=== PATIENT | female | born 1955 | race Hispanic/Latino ===

== ENCOUNTER 2018-10-14 00:39 | Emergency (ER) | payer MEDICARE, MEDICAID ==
[2018-10-14 02:30] LABS: #Basophils 0.1 thou/uL (0.0-0.2); #Eosinphils 0.1 thou/uL (0.0-0.7); #Lymphocytes 1.5 thou/uL (1.20-3.40); #Monocytes 0.4 thou/uL (0.11-0.59); #Neutrophils 3.6 thou/uL (1.40-6.50); %Basophils 1.3 % (0.0-1.0); %Eosinophils 1.5 % (0.0-10.0); %Lymphocytes 26.3 % (21.0-51.0); %Monocytes 7.7 % (0.0-10.0); %Neutrophils 63.2 % (42.0-75.0); Hemoglobin 11.3 g/dL (12.0-16.0); Mean Corpuscular HGB CONC 33.7 g/dL (32.0-36.0); Mean Corpuscular Hemoglobin 31.5 pg (27.0-31.0); Mean Corpuscular Volume 93.3 fL (78.0-98.0); Mean Platelet Volume 7.4 fL (7.4-10.4); Platelet Count 276 thou/uL (130-400); RBC Distribution Width 15.8 % (11.5-14.5); Red Blood Cell (RBC) Count 3.59 mill/uL (4.20-5.40); White Blood Cell (WBC) Count 5.6 thou/uL (4.8-10.8)
[2018-10-14 02:49] LABS: ALT (SGPT) 7 U/L (8-55); AST (SGOT) 13 U/L (5-34); Alkaline Phosphatase 92 U/L (40-150); Anion Gap 17 mmol/L (10-20); BUN (Urea Nitrogen) 22 mg/dL (9.8-20.1); Bilirubin, Total 0.4 mg/dL (0.2-1.2); Calc. Creatinine Clearance 0 mL/min (70-130); Calcium 9.6 mg/dL (7.8-10.44); Carbon Dioxide 31 mmol/L (23-31); Chloride 95 mmol/L (98-107); Estimated GFR-MDRD 8; Globulin 3.7 g/dL (2.4-3.5); Glucose 184 mg/dL (80-115); Potassium 4.2 mmol/L (3.5-5.1); Protein, Total 7.7 g/dL (6.0-8.3); Sodium 139 mmol/L (136-145)
--- NOTE | 2018-10-14 08:07 | RAD ---
TWO VIEWS CHEST: Date: 10-14-18 Comparison: 01-29-16 History: Chest pain with shortness of breath. FINDINGS: Two views of the chest show normal sized cardiomediastinal silhouette. There is no evidence of consol idation, mass, or pleural effusion. Degenerative changes are seen in the spine. IMPRESSION: No evidence of acute cardiopulmonary disease. POS: [facility]
== END 2018-10-14 05:25 | disposition home or self-care (01) ==
LOC: ERS 00:39
DX: R05 Cough (principal); R06.02 Shortness of breath; E11.9 Type 2 diabetes mellitus without complications; E03.9 Hypothyroidism, unspecified; I10 Essential (primary) hypertension; Z79.4 Long term (current) use of insulin; Z79.899 Other long term (current) drug therapy
CPT/HCPCS: 36415; 71046; 80053; 83880; 84484; 85025

== ENCOUNTER 2019-08-15 19:23 | Inpatient (IN) | payer MEDICARE, MEDICAID ==
[2019-08-15] MEDS ORDERED: Sodium Chloride For Inhalation 0.9% 3 ML NEB ONE (19:55)
[2019-08-15] MEDS ORDERED: Levalbuterol HCl 1.25 MG/0.5 ML NEB ONE (19:55)
[2019-08-15] MEDS ORDERED: Oseltamivir 75 MG CAP ONE (20:11)
[2019-08-15] MEDS ORDERED: Acetaminophen 500 MG TAB ONE (20:11)
[2019-08-15 20:14] LABS: #Basophils 0.2 thou/uL (0.0-0.2); #Eosinphils 0.1 thou/uL (0.0-0.7); #Lymphocytes 3.4 thou/uL (1.20-3.40); #Monocytes 0.9 thou/uL (0.11-0.59); #Neutrophils 10.5 thou/uL (1.40-6.50); %Basophils 1.4 % (0.0-1.0); %Eosinophils 0.5 % (0.0-10.0); %Lymphocytes 22.2 % (21.0-51.0); %Monocytes 6.1 % (0.0-10.0); %Neutrophils 69.8 % (42.0-75.0); Hemoglobin 12.6 g/dL (12.0-16.0); Mean Corpuscular HGB CONC 32.2 g/dL (32.0-36.0); Mean Corpuscular Hemoglobin 31.4 pg (27.0-31.0); Mean Corpuscular Volume 97.5 fL (78.0-98.0); Mean Platelet Volume 7.4 fL (7.4-10.4); Platelet Count 286 thou/uL (130-400); Red Blood Cell (RBC) Count 4.01 mill/uL (4.20-5.40); White Blood Cell (WBC) Count 15.1 thou/uL (4.8-10.8)
--- NOTE | 2019-08-15 20:14 | RAD ---
EXAM: Portable chest PROVIDED CLINICAL HISTORY: Cough COMPARISON: 10/14/2018 FINDINGS: Cardiac and mediastinal silhouette is within normal limits. No focal consolidation, pleural fluid or pneumothorax evident. IMPRESSION: No evidence for an acute cardiopulmonary process.
[2019-08-15 20:31] LABS: ALT (SGPT) 13 U/L (8-55); AST (SGOT) 12 U/L (5-34); Albumin 4.2 g/dL (3.4-4.8); Alkaline Phosphatase 79 U/L (40-110); Anion Gap 20 mmol/L (10-20); BUN (Urea Nitrogen) 26 mg/dL (9.8-20.1); Bilirubin, Total 0.4 mg/dL (0.2-1.2); CK (CPK) 31 U/L (29-168); Calc. Creatinine Clearance 0 mL/min (70-130); Calcium 9.9 mg/dL (7.8-10.44); Carbon Dioxide 27 mmol/L (23-31); Chloride 93 mmol/L (98-107); Estimated GFR-MDRD 6; Globulin 3.8 g/dL (2.4-3.5); Glucose 368 mg/dL (80-115); Potassium 4.1 mmol/L (3.5-5.1); Sodium 136 mmol/L (136-145)
[2019-08-15] MEDS ORDERED: cefTRIAXone\\ROCEPHIN 1 GM VIAL ONE (20:43)
[2019-08-15] MEDS ORDERED: Azithromycin 500 MG VIAL ONE (20:43)
[2019-08-15] MEDS ORDERED: Sodium Chloride 0.9% 100 ML ONE (20:44)
[2019-08-15 20:59] LABS: Bilirubin Negative (Negative); Blood, Urine Trace (Negative); Clarity Clear (Clear); Glucose, Urine (Dipstick) >=1000 mg/dL (Negative); Leukocyte Negative (Negative); Nitrite Negative (Negative); Protein, Urine (Dipstick) > or equal to 300 mg/dL (Neg-Trace); Urobilinogen 0.2 mg/dL (Less than 2)
[2019-08-15 21:03] LABS: Bacteria/HPF None Seen HPF (None Seen); RBC/HPF 0-3 HPF (0-3); Squamous Epithelial 0-3 HPF (0-3); WBC/HPF 0-3 HPF (0-3)
[2019-08-16] MEDS ORDERED: Dextrose 50% Abboject 50 ML SYRINGE SLOW IVP PRN (01:06)
[2019-08-16] MEDS ORDERED: Dextrose 5% in Water 1,000 ML IV PRN ×2 (01:06→01:10)
[2019-08-16] MEDS ORDERED: Ondansetron ODT 4 MG TAB SL PRN (01:09)
[2019-08-16] MEDS ORDERED: Ondansetron PF 4 MG/2 ML Vial IVP PRN (01:09)
[2019-08-16] MEDS ORDERED: Acetaminophen 325 MG TAB PO PRN (01:09)
[2019-08-16] MEDS ORDERED: HYDROcodone/Acetaminophen 5/325 mg Tablet PO PRN ×3 (01:09→17:17)
[2019-08-16] MEDS ORDERED: Dextrose 50% Abboject 50 ML SYRINGE IVP PRN (01:10)
[2019-08-16] MEDS ORDERED: Insulin Regular 300 UNITS/3 ML VIAL SC PRN (01:10)
[2019-08-16] MEDS ORDERED: Sodium Chloride For Inhalation 0.9% 3 ML NEB NEB PRN (01:19)
[2019-08-16 01:31] LABS: Lactic Acid 2.7 mmol/L (0.5-2.2)
[2019-08-16 01:33] VITALS: BMI 31.5
--- NOTE | 2019-08-16 01:34 | PDOC.EVN ---
Event Note - Event Note Event Note: [id number] HP
[2019-08-16] MEDS: Levalbuterol HCl 1.25 MG/0.5 ML NEB NEB SCH ×2 (01:39→07:29)
[2019-08-16] MEDS ORDERED: cefTRIAXone\\ROCEPHIN 1 GM in Sodium Chloride 0.9% 100 ML IVPB SCH (02:00)
[2019-08-16] MEDS ORDERED: Azithromycin 500 MG in Sodium Chloride 0.9% 250 ML 250 ML IVPB SCH (03:00)
[2019-08-16] MEDS: HumaLOG 300 UNITS/3 ML VIAL SC PRN ×3 (05:48→17:01)
[2019-08-16] MEDS ORDERED: Prevnar 13-Val Conj/PF 0.5 ML SYRINGE IM ONE (09:00)
[2019-08-16] MEDS ORDERED: Oseltamivir 75 MG CAP PO SCH (09:00)
[2019-08-16] MEDS ORDERED: Labetalol HCl 100 MG/20 ML VIAL SLOW IVP PRN (09:33)
[2019-08-16] MEDS ORDERED: Melatonin 3 MG TAB PO PRN (09:33)
[2019-08-16] MEDS: Benzonatate 100 MG CAP PO PRN ×2 (11:00→15:38)
--- NOTE | 2019-08-16 11:19 | PDOC.EVN ---
Event Note - Event Note Event Note: Seen and examined. Nasal discomfort an upper respiratory tract infection symptoms. On appropriate antibiotics. Flu negative, DC antiviral. Nephrology consult for continuation of hemodialysis on Saturday/Saturday/Saturday schedule. Restarted home medications as able. Family at bedside. All questions answered in detail, patient and family are happy with plan of care.
[2019-08-16] MEDS ORDERED: Carvedilol 6.25 MG TAB PO SCH (12:30)
[2019-08-16] MEDS: Acetaminophen 500 MG TAB PO PRN (17:37)
[2019-08-16] MEDS: Carvedilol 6.25 MG TAB PO SCH (20:51)
[2019-08-16] MEDS: cefTRIAXone\\ROCEPHIN 1 GM in Sodium Chloride 0.9% 100 ML IVPB SCH (20:52)
[2019-08-16] MEDS: Brimonidine Tartrate 0.2% Ophth Soln 5 ml Bottle EA EYE SCH (20:53)
[2019-08-16] MEDS: Timolol 0.5% Ophth Soln 5 ml Bottle EA EYE SCH (20:53)
[2019-08-16] MEDS: Fluticasone Propionate Nasal Spray 16 gm Bottle NASAL SCH (20:54)
[2019-08-16] MEDS: Azithromycin 500 MG in Sodium Chloride 0.9% 250 ML 250 ML IVPB SCH ×2 (21:00→21:48)
[2019-08-16] MEDS: Insulin Glargine 20 UNITS in Pre-Filled Syringe 1 EACH SC SCH (21:08)
[2019-08-17] MEDS: Levothyroxine Sodium 100 MCG TAB PO SCH (05:35)
[2019-08-17] MEDS: HumaLOG 300 UNITS/3 ML VIAL SC PRN ×2 (05:37→17:13)
--- NOTE | 2019-08-17 07:45 | HP ---
CHIEF COMPLAINT: Shortness of breath and flu-like symptoms. HISTORY OF PRESENT ILLNESS: Ms. Hoskins is a 64-year-old female with past medical historyof end-stage renal disease on hemodialysis, diabetes mellitus, hypertension, hypothyroidism, among others, presents to the emergency room with cough, myalgia, generalized weakness, and fever for 1 week. The patient was seen at the Urgent Care the day before and was prescribed Augmentin for possible strep throat. The patient's condition got worse. Workup in the emergency room including a chest x-ray was nondiagnostic. Rapid flu test is negative, but the patient was experiencing flu-like symptoms, so the ED physician gave the patient 1 dose of Tamiflu. Also, septic workup was done in the ED. The patient was started on IV antibiotics. The patient is being admitted to hospital for further management. PAST MEDICAL HISTORY: 1. End-stage renal disease, on hemodialysis. 2. Hypertension. 3. Diabetes mellitus. 4. Blindness. 5. Hypothyroidism. SOCIAL HISTORY: No history of smoking, alcohol drinking, or drug abuse. FAMILY HISTORY: Reviewed, noncontributory. ALLERGIES: NO KNOWN ALLERGIES. HOME MEDICATIONS: Please see home medication reconciliation form for updated medications. REVIEW OF SYSTEMS: Review of 14 systems negative except what is mentioned in history of present illness. PHYSICAL EXAMINATION: GENERAL: The patient is awake, alert, in moderate distress. VITAL SIGNS: Blood pressure 158/65, temperature 99.1, respiratory rate is 20, pulse is 82, pulse oximetry is 99% on room air. HEAD AND NECK: Normocephalic, atraumatic. Throat is erythematous. Neck is supple. CHEST: Coarse bilateral breath sounds. HEART: S1, S2. Regular. ABDOMEN: Soft, nontender. Bowel sounds present. NEURO: Awake, alert, oriented x3, the patient is blind. PSYCH: Unable to assess. EXTREMITIES: No clubbing, no cyanosis. LABORATORY DATA: Sodium is 136, potassium 4.1, BUN is 26, creatinine 6.5, glucose is elevated at 368. Lactic acid is 2.5. Repeat lactic acid is 2.4. Troponin 0.017. The urinalysis unremarkable except for protein and glucose. Chest x-ray is nondiagnostic, does not show any acute findings. ASSESSMENT: 1. Fever. 2. Leukocytosis. 3. Flu-like symptoms. 4. End-stage renal disease, on hemodialysis. 5. Diabetes mellitus with hyperglycemia. 6. Hypertension. 7. Blindness. PLAN: 1. Admit. 2. Septic workup including blood cultures. 3. The patient was started on IV antibiotics. 4. The patient was given 1 dose of Tamiflu in the ED. Her symptoms have been going on for 1 week for now. I do not see any benefit of continuing Tamiflu at this point, especially symptoms has been going on for a week and flu test is negative. 5. Consider nephrology consultation. The patient is due for hemodialysis on Saturday. 6. Reconcile home medications. 7. DVT prophylaxis as appropriate. 8. Expected length of stay at least 1 midnight if patient is stable. Job ID: [id number]
[2019-08-17] MEDS ORDERED: Insulin Glargine 25 UNITS in Pre-Filled Syringe 1 EACH SC SCH (10:45)
[2019-08-17] MEDS ORDERED: Heparin 10,000 UNITS/ 10 ML VIAL ONE (11:11)
[2019-08-17] MEDS: Acetaminophen 500 MG TAB PO PRN ×3 (11:17→20:52)
[2019-08-17] MEDS: Benzonatate 100 MG CAP PO PRN ×2 (11:18→22:12)
[2019-08-17] MEDS ORDERED: guaiFENesin/Codeine Phosphate 200 mg/20 mg 10 ml UD Cup PO PRN (11:30)
[2019-08-17] MEDS ORDERED: HumaLOG 300 UNITS/3 ML VIAL SC PRN (11:33)
[2019-08-17 12:14] LABS: Anion Gap 18 mmol/L (10-20); BUN (Urea Nitrogen) 13 mg/dL (9.8-20.1); Calc. Creatinine Clearance 20 mL/min (70-130); Calcium 9.7 mg/dL (7.8-10.44); Carbon Dioxide 26 mmol/L (23-31); Chloride 100 mmol/L (98-107); Estimated GFR-MDRD 12; Glucose 141 mg/dL (80-115); Potassium 4.5 mmol/L (3.5-5.1); Sodium 139 mmol/L (136-145)
[2019-08-17 12:36] LABS: #Basophils 0.1 thou/uL (0.0-0.2); #Eosinphils 0.3 thou/uL (0.0-0.7); #Lymphocytes 3.6 thou/uL (1.20-3.40); #Neutrophils 7.6 thou/uL (1.40-6.50); %Basophils 1.1 % (0.0-1.0); %Eosinophils 2.6 % (0.0-10.0); %Lymphocytes 28.7 % (21.0-51.0); %Monocytes 7.9 % (0.0-10.0); %Neutrophils 59.7 % (42.0-75.0); Mean Corpuscular HGB CONC 33.9 g/dL (32.0-36.0); Mean Corpuscular Hemoglobin 31.9 pg (27.0-31.0); Mean Corpuscular Volume 94.2 fL (78.0-98.0); Platelet Count 262 thou/uL (130-400); RBC Distribution Width 16.3 % (11.5-14.5); Red Blood Cell (RBC) Count 3.75 mill/uL (4.20-5.40); White Blood Cell (WBC) Count 12.6 thou/uL (4.8-10.8)
[2019-08-17] MEDS: Fluticasone Propionate Nasal Spray 16 gm Bottle NASAL SCH ×2 (13:12→20:54)
[2019-08-17] MEDS: Carvedilol 6.25 MG TAB PO SCH ×2 (13:12→20:51)
[2019-08-17] MEDS: Brimonidine Tartrate 0.2% Ophth Soln 5 ml Bottle EA EYE SCH ×2 (13:12→20:54)
[2019-08-17] MEDS: Insulin Glargine 20 UNITS in Pre-Filled Syringe 1 EACH SC SCH (13:14)
[2019-08-17] MEDS: Timolol 0.5% Ophth Soln 5 ml Bottle EA EYE SCH ×2 (13:14→20:54)
--- NOTE | 2019-08-17 14:52 | PDOC.HOSPP ---
- Subjective Subjective: Seen and examined. Clinically improving. Afebrile. Still with cough and upper respiratory tract infection symptoms. Adjusting medications for cough as needed. Finished dialysis this morning. Family at bedside, all questions answered in detail. Patient and family happy with plan of care. - Objective Vital Signs & Weight: Vital Signs (12 hours) Temp Pulse Resp BP BP Pulse Ox 08/17/19 13:14 177/73 H 08/17/19 13:12 177/73 H 08/17/19 11:30 97 08/17/19 11:14 98.3 F 86 18 124/67 97 08/17/19 04:19 98.3 F 79 20 173/86 H 97 Weight Weight 178 lb I&O: 08/16/19 08/17/19 08/18/19 06:59 06:59 06:59 Intake Total 400 1572 Balance 400 1572 Result Diagrams: 08/17/19 12:27 08/17/19 11:29 Additional Labs: Accuchecks 08/17/19 08/17/19 08/16/19 11:36 04:25 19:25 POC Glucose 137 H 280 H 217 H 08/16/19 16:24 POC Glucose 246 H Radiology Reviewed by me: Yes Hospitalist ROS - Review of Systems All other systems reviewed; all pertinent +/- noted in HPI/Subj - Medication Medications: Active Medications Generic Name Dose Route Start Last Admin Trade Name Freq PRN Reason Stop Dose Admin Acetaminophen 1,000 mg 08/16/19 17:16 08/17/19 13:10 Tylenol PO 1,000 mg Q6H PRN Administration Moderate Pain (4-6) Albuterol/Ipratropium 3 ml 08/16/19 09:33 08/16/19 15:49 Duoneb NEB 3 ml [id number] PRN Administration SOB &/or Wheezing Benzonatate 100 mg 08/16/19 09:33 08/17/19 11:18 Tessalon PO 100 mg Q4H PRN Administration Cough Brimonidine Tartrate 1 drop 08/16/19 21:00 08/17/19 13:12 Alphagan 0.2% Ophth Soln EA EYE Not Given BID ZOILA Carvedilol 12.5 mg 08/16/19 21:00 08/17/19 13:12 Coreg PO Not Given BID ZOILA Fluticasone Propionate 0 gm 08/16/19 21:00 08/17/19 13:12 Flonase Nasal [place] NASAL Not Given BID ZOILA Ceftriaxone Sodium 1 gm/ 100 mls @ 200 mls/hr 08/16/19 20:00 08/16/19 20:52 Sodium Chloride IVPB 100 mls 2000 ZOILA Administration Azithromycin 500 mg/ Sodium 250 mls @ 250 mls/hr 08/16/19 21:00 08/16/19 21: 48 Chloride IVPB 250 mls 2100 ZOILA Administration Levothyroxine Sodium 100 mcg 08/17/19 06:00 08/17/19 05:35 Synthroid PO 100 mcg 0600 ZOILA Administration Timolol Maleate 1 drop 08/16/19 21:00 08/17/19 13:14 Timoptic 0.5% Ophth Soln EA EYE Not Given BID ZOILA - Exam General Appearance: NAD Eye: PERRL, anicteric sclera ENT: normocephalic atraumatic, moist mucosa Neck: supple, symmetric, no lymphadenopathy Heart: no murmur, no gallops, no rubs Respiratory: CTAB, no rales, normal chest expansion, rhonchi, wheezes (improving ) Gastrointestinal: soft, non-tender, non-distended, no guarding, no rigidity Extremities - other findings: Left UE with fistula with palpable and audible thrill Skin: no rashes Neurological: cranial nerve grossly intact, normal sensation to touch, no focal deficits, vision deficit (blind at baseline) Musculoskeletal: generalized weakness Psychiatric: normal affect, A&O x 3 Hosp A/P (1) Bronchitis Code(s): J40 - BRONCHITIS, NOT SPECIFIED ACUTE OR CHRONIC Status: Acute (2) Upper respiratory infection Code(s): J06.9 - ACUTE UPPER RESPIRATORY INFECTION, UNSPECIFIED Status: Acute (3) Sepsis Code(s): A41.9 - SEPSIS, UNSPECIFIED ORGANISM Status: Acute (4) ESRD needing dialysis Code(s): N18.6 - END STAGE RENAL DISEASE Status: Acute (5) Fluid overload Code(s): E87.70 - FLUID OVERLOAD, UNSPECIFIED Status: Acute (6) Anemia of renal disease Code(s): D63.1 - ANEMIA IN CHRONIC KIDNEY DISEASE Status: Chronic (7) Chronic diastolic heart failure Code(s): I50.32 - CHRONIC DIASTOLIC (CONGESTIVE) HEART FAILURE Status: Chronic (8) DM type 2 (diabetes mellitus, type 2) Status: Chronic Qualifiers: Diabetes mellitus complication status: with kidney complications Diabetes mellitus complication detail: with chronic kidney disease Chronic kidney disease stage: stage 4 (severe) Qualified Code(s): E11.22 - Type 2 diabetes mellitus with diabetic chronic kidney disease (9) Glaucoma Code(s): H40.9 - UNSPECIFIED GLAUCOMA Status: Chronic (10) HTN (hypertension) Code(s): I10 - ESSENTIAL (PRIMARY) HYPERTENSION Status: Chronic (11) Hypothyroidism Code(s): E03.9 - HYPOTHYROIDISM, UNSPECIFIED Status: Chronic (12) Secondary hyperparathyroidism of renal origin Code(s): N25.81 - SECONDARY HYPERPARATHYROIDISM OF RENAL ORIGIN Status: Chronic (13) Dyspnea Code(s): R06.00 - DYSPNEA, UNSPECIFIED Status: Resolved (14) Metabolic acidosis Code(s): E87.2 - ACIDOSIS Status: Resolved - Plan Plan: medical unit nephrology consultation, recommendations patient responding to pulmonary specific antibiotics breathing treatments scheduled and as needed cough aid as needed blood pressure medications continued hemodialysis per nephrology Saturday schedule continue other home medications as able blood sugar control with long and short acting insulin patient is on Toujeo as an outpatient, non formulary. substituted for Lantus BID - increased from 20 units to 25 units today increase lighting so coverage from mild to moderate
[2019-08-17] MEDS: cefTRIAXone\\ROCEPHIN 1 GM in Sodium Chloride 0.9% 100 ML IVPB SCH (20:52)
[2019-08-17] MEDS: Azithromycin 500 MG in Sodium Chloride 0.9% 250 ML 250 ML IVPB SCH (20:57)
[2019-08-17] MEDS: Insulin Glargine 25 UNITS in Pre-Filled Syringe 1 EACH SC SCH (20:57)
[2019-08-18] MEDS ORDERED: Ondansetron ODT 4 MG TAB SL PRN (00:09)
[2019-08-18] MEDS: Levothyroxine Sodium 100 MCG TAB PO SCH (05:37)
[2019-08-18] MEDS: Timolol 0.5% Ophth Soln 5 ml Bottle EA EYE SCH ×2 (08:54→20:20)
[2019-08-18] MEDS: Brimonidine Tartrate 0.2% Ophth Soln 5 ml Bottle EA EYE SCH ×2 (08:54→20:20)
[2019-08-18] MEDS: Carvedilol 6.25 MG TAB PO SCH ×2 (08:56→20:19)
[2019-08-18] MEDS: Fluticasone Propionate Nasal Spray 16 gm Bottle NASAL SCH ×2 (08:56→20:20)
[2019-08-18] MEDS: Insulin Glargine 25 UNITS in Pre-Filled Syringe 1 EACH SC SCH ×2 (08:57→20:21)
[2019-08-18] MEDS: Benzonatate 100 MG CAP PO PRN ×2 (09:11→20:19)
[2019-08-18] MEDS: HumaLOG 300 UNITS/3 ML VIAL SC PRN (14:29)
--- NOTE | 2019-08-18 15:46 | PDOC.HOSPP ---
- Subjective Encounter Date: 08/18/19 Encounter Time: 11:45 Subjective: pt up in bed feels much better today. - Objective Vital Signs & Weight: Vital Signs (12 hours) Temp Pulse Resp BP BP Pulse Ox 08/18/19 08:56 162/76 H 08/18/19 08:54 74 162/76 H 08/18/19 08:40 98.7 F 76 16 162/76 H 98 08/18/19 08:30 97 08/18/19 07:41 98.3 F 74 16 149/75 H 97 08/18/19 04:00 97.9 F 73 18 153/77 H 96 Weight Weight 178 lb I&O: 08/17/19 08/18/19 08/19/19 06:59 06:59 06:59 Intake Total 1572 1030 Balance 1572 1030 Result Diagrams: 08/17/19 12:27 08/17/19 11:29 Additional Labs: Accuchecks 08/18/19 08/18/19 08/17/19 11:54 05:05 19:50 POC Glucose 174 H 206 H 293 H 08/17/19 16:16 POC Glucose 298 H Hospitalist ROS - Review of Systems Cardiovascular: denies: chest pain, palpitations, orthopnea, paroxysmal noc. dyspnea, edema, light headedness, other Gastrointestinal: denies: nausea, vomiting, abdominal pain, diarrhea, constipation, melena, hematochezia, other - Medication Medications: Active Medications Generic Name Dose Route Start Last Admin Trade Name Freq PRN Reason Stop Dose Admin Acetaminophen 1,000 mg 08/16/19 17:16 08/17/19 20:52 Tylenol PO 1,000 mg Q6H PRN Administration Moderate Pain (4-6) Albuterol/Ipratropium 3 ml 08/16/19 09:33 08/18/19 05:15 Duoneb NEB 3 ml [id number] PRN Administration SOB &/or Wheezing Benzonatate 100 mg 08/16/19 09:33 08/18/19 09:11 Tessalon PO 100 mg Q4H PRN Administration Cough Brimonidine Tartrate 1 drop 08/16/19 21:00 08/18/19 08:54 Alphagan 0.2% Ophth Soln EA EYE 1 drp BID ZOILA Administration Carvedilol 12.5 mg 08/16/19 21:00 08/18/19 08:56 Coreg PO 12.5 mg BID ZOILA Administration Fluticasone Propionate 0 gm 08/16/19 21:00 08/18/19 08:56 Flonase Nasal [place] NASAL 1 spr BID ZOILA Administration Guaifenesin/Codeine Phosphate 10 ml 08/17/19 11:30 08/17/19 20:53 Robitussin Ac PO 10 ml Q6H PRN Administration Cough Ceftriaxone Sodium 1 gm/ 100 mls @ 200 mls/hr 08/16/19 20:00 08/17/19 20:52 Sodium Chloride IVPB 100 mls 2000 ZOILA Administration Azithromycin 500 mg/ Sodium 250 mls @ 250 mls/hr 08/16/19 21:00 08/17/19 20: 57 Chloride IVPB 250 mls 2100 ZOILA Administration Insulin Glargine 25 units/ 0.25 mls @ 1 mls/hr 08/17/19 21:00 08/18/19 08:57 Miscellaneous Medication SC 0.25 mls BID ZOILA Administration Insulin Human Lispro 0 units 08/17/19 11:33 08/18/19 14:29 Humalog SC 2 unit .MODERATE SLIDING SC PRN Administration Moderate Correctional Scale Levothyroxine Sodium 100 mcg 08/17/19 06:00 08/18/19 05:37 Synthroid PO 100 mcg 0600 ZOILA Administration Ondansetron HCl 4 mg 08/18/19 00:09 08/18/19 00:27 Zofran Odt SL 4 mg Q6H PRN Administration Nausea/Vomiting Timolol Maleate 1 drop 08/16/19 21:00 08/18/19 08:54 Timoptic 0.5% Ophth Soln EA EYE 1 drp BID ZOILA Administration - Exam Neck: negative: supple, symmetric, no JVD, no thyromegaly, no lymphadenopathy, no carotid bruit, JVD Heart: negative: RRR, no murmur, no gallops, no rubs, normal peripheral pulses, irregular, diminshed peripheral pulses, murmur present, II/IV, III/IV Respiratory: negative: CTAB, no wheezes, no rales, no ronchi, normal chest expansion, no tachypnea, normal percussion, rales, rhonchi, tachypneic, wheezes Hosp A/P (1) Bronchitis Code(s): J40 - BRONCHITIS, NOT SPECIFIED ACUTE OR CHRONIC Status: Acute (2) Upper respiratory infection Code(s): J06.9 - ACUTE UPPER RESPIRATORY INFECTION, UNSPECIFIED Status: Acute (3) ESRD needing dialysis Code(s): N18.6 - END STAGE RENAL DISEASE Status: Acute (4) Anemia of renal disease Code(s): D63.1 - ANEMIA IN CHRONIC KIDNEY DISEASE Status: Chronic (5) Chronic diastolic heart failure Code(s): I50.32 - CHRONIC DIASTOLIC (CONGESTIVE) HEART FAILURE Status: Chronic (6) DM type 2 (diabetes mellitus, type 2) Status: Chronic Qualifiers: Diabetes mellitus complication status: with kidney complications Diabetes mellitus complication detail: with chronic kidney disease Chronic kidney disease stage: stage 4 (severe) - Plan pt up in bed feels well. will get RVP swab. will continue abx for now. will get an echo. pt states she feels better with nebs. will continue.
[2019-08-18] MEDS: Docusate 100 MG CAP PO PRN (17:05)
[2019-08-18] MEDS: cefTRIAXone\\ROCEPHIN 1 GM in Sodium Chloride 0.9% 100 ML IVPB SCH (20:19)
[2019-08-18] MEDS: Azithromycin 500 MG in Sodium Chloride 0.9% 250 ML 250 ML IVPB SCH (20:20)
[2019-08-19] MEDS: Levothyroxine Sodium 100 MCG TAB PO SCH (05:41)
[2019-08-19 07:56] LABS: Anion Gap 17 mmol/L (10-20); BUN (Urea Nitrogen) 36 mg/dL (9.8-20.1); Calc. Creatinine Clearance 10 mL/min (70-130); Calcium 9.2 mg/dL (7.8-10.44); Carbon Dioxide 25 mmol/L (23-31); Chloride 101 mmol/L (98-107); Estimated GFR-MDRD 5; Glucose 129 mg/dL (80-115); Potassium 4.8 mmol/L (3.5-5.1); Sodium 138 mmol/L (136-145)
[2019-08-19] MEDS: Brimonidine Tartrate 0.2% Ophth Soln 5 ml Bottle EA EYE SCH (09:53)
[2019-08-19] MEDS: Insulin Glargine 25 UNITS in Pre-Filled Syringe 1 EACH SC SCH (09:53)
[2019-08-19] MEDS: Timolol 0.5% Ophth Soln 5 ml Bottle EA EYE SCH (09:53)
[2019-08-19] MEDS: Docusate 100 MG CAP PO PRN (09:54)
[2019-08-19] MEDS: Fluticasone Propionate Nasal Spray 16 gm Bottle NASAL SCH (09:54)
[2019-08-19] MEDS: Carvedilol 6.25 MG TAB PO SCH (09:54)
[2019-08-19] MEDS: Benzonatate 100 MG CAP PO PRN (10:56)
[2019-08-19 18:09] VITALS: BP 113/66; TEMP 97.7
--- NOTE | 2019-08-20 12:40 | DIS ---
DATE OF ADMISSION: 08/17/2019 DATE OF DISCHARGE: 08/19/2019 DISCHARGE DIAGNOSES: 1. Upper respiratory tract infection, most likely bronchitis, viral related. Rhinovirus was positive. 2. Diabetes. 3. End-stage renal disease, on dialysis. 4. Anemia of chronic disease. HOSPITAL COURSE: The patient is a 64-year-old female, who initially presented to the hospital with generalized body aches and pains. At this time, her flu was negative. She also had shortness of breath. She did undergo a chest x-ray which was essentially normal. I did swab her further for a respiratory viral panel, which did indicate rhinovirus. However, her influenza A/B was negative. The patient was initially put on prophylactic antibiotics. She continued to improve. She did have some cough and phlegm, which I have encouraged her to drink a little bit more water and also has been giving her neb treatments. Her lungs appear clear. She will be discharged home today. She will follow up with her primary. HOME MEDICATIONS: 1. Tessalon Perles 100 mg b.i.d. p.r.n. 2. Doxycycline 100 mg b.i.d. for another 5 days. 3. DuoNeb 3 mL q.4 hours as needed. 4. Levothyroxine 100 mcg daily. 5. Coreg 12.5 b.i.d. 6. Brimonidine tartrate one drop b.i.d. 7. Timolol one drop each eye b.i.d. 8. Insulin 38 units daily. PHYSICAL EXAMINATION: VITAL SIGNS: Temperature of 98.8, pulse 71, respirations 16, 98% on room air, blood pressure 152/79. GENERAL: She is awake, alert, and oriented x3. Does not appear in any distress. CV: S1 and S2 present. No murmurs, rubs, or gallops. ABDOMEN: Soft and nontender. Bowel sounds are present x2. EXTREMITIES: No edema. DISCHARGE DISPOSITION: Again, she will be discharged home. FOLLOWUP: She will follow up with her primary and dialysis. Job ID: [id number]
--- NOTE | 2019-08-21 05:16 | PQF ---
WILDER THORNTON KARISHMA [id number] CLINICAL DOCUMENTATION CLARIFICATION FORM: POST DISCHARGE Addendum to original discharge summary date: ____ Late entry note date: __ DATE: 08/23/2019 ATTN: ROSEY HUNG Please exercise your independent, professional judgment in responding to the clarification form. Clinical indicators are provided on the bottom of this form for your review Please check appropriate box(es): [ ] Sepsis [ ] Severe sepsis [ ] Septic Shock [ ] Localized infection without sepsis [ ] Other diagnosis [ ] Unable to determine In addition, please specify: Present on Admission (POA): [ ] Yes [ ] No [ ] Unable to determine For continuity of documentation, please document condition throughout progress notes and discharge summary. Thank You. CLINICAL INDICATORS - SIGNS / SYMPTOMS / LABS Septic workup was done in ED - Documented in H&P on 08/16 by Joaquin Nuñez lactic acid -2.5 on 08/15- Documented in Laboratory fever , leukocytosis - Documented in H&P on 08/16 by Joaquin Nuñez septic workup including blood cultures - Documented in H&P on 08/16 by Joaquin Nuñez acute bronchitis , abnormal lactate - Documented in ED on 08/15 pg#3 RISK FACTORS Sepsis -Inpatient order Upper respiratory infection,most likely bronchitis, viral related - Documented in DS on 08/19 by ROSEY HUNG TREATMENTS: repeat lactic acid - Documented in H&P on 08/16 by Joaquin Nuñezstarted on IV abx (This form is maintained as a part of the permanent medical record) 2014 [employer]. All Rights Reserved [employer] Leod[employer]form Nicolas [email or web address] [not provided] MTDD
== END 2019-08-19 19:17 | disposition home or self-care (01) | DRG 202 ==
LOC: SCSER 19:23 → T4-B 23:25 → SCSER 08-16 00:15 → OBSVTOIN 08-17 10:20
PROVIDERS: ADMIT Internal Medicine; ATTEND Internal Medicine
PROC: 5A1D70Z Performance of Urinary Filtration, Intermittent, Less than 6 Hours Per Day (ICD-10-PCS; principal; 2019-08-17)
DX: J20.6 Acute bronchitis due to rhinovirus (principal); N18.6 End stage renal disease; I50.32 Chronic diastolic (congestive) heart failure; N25.81 Secondary hyperparathyroidism of renal origin; E87.2 Acidosis; I13.2 Hypertensive heart and chronic kidney disease with heart failure and with stage 5 chronic kidney disease, or end stage renal disease; E03.9 Hypothyroidism, unspecified; H54.7 Unspecified visual loss; E11.65 Type 2 diabetes mellitus with hyperglycemia; E11.22 Type 2 diabetes mellitus with diabetic chronic kidney disease; H40.9 Unspecified glaucoma; D63.1 Anemia in chronic kidney disease; J06.9 Acute upper respiratory infection, unspecified
CPT/HCPCS: 36415; 36416; 71045; 80048; 80053; 81003; 81015; 82550; 83605; 83880; 84484; 85025; 87040; 87086; 87633; 87798; 87804; 90471; 90670; 90935; 93005; 93306; 94640; 94760; 96365; 96367; G0009; G0257; J0456; J0696; J1644; J1815; J3490; J7050; J7612; J7620; Q0162

== ENCOUNTER 2019-12-15 15:00 | Outpatient (CLI) | payer MEDICARE, MEDICAID ==
--- NOTE | 2019-12-15 15:50 | RAD ---
CHEST 2 VIEWS: HISTORY: Shortness of breath. COMPARISON: 10/14/2018. FINDINGS: Minimal cardiomegaly. Mild stable increased markings bilaterally. No confluent pneumonia, overt dianelys ma, or pleural effusion. Slight blunting of the costophrenic angles. IMPRESSION: Mild increased bronchovascular markings bilaterally and slight blunting of the costophrenic angles, p ossibly small pleural effusions and vascular congestion. No new confluent lobar pneumonia or other a cute process. POS: [facility]
--- NOTE | 2019-12-15 16:16 | BD ---
Exam: DEXA Bone Density 12/15/19 HISTORY: Osteoporosis screening. COMPARISON: None. FINDINGS: Lumbar Spine: BMD (g/cm2) T-SCORE Z-SCORE L1 0.940 -0.5 1.0 L2 1.063 0.3 1.9 L3 1.049 -0.3 1.4 L4 1.076 0.1 1.9 L1-L4 1.033 -0.1 1.5 Left Femoral Neck: 0.666 -1.6 -0.4 Total Left Femur: 0.755 -1.5 -0.5 WHO classification: Osteopenia. IMPRESSION: Osteopenia with elevated fracture risk. POS: [facility]
--- NOTE | 2019-12-15 16:27 | MMO ---
Bilateral MAMMO Bilat Screen [facility]. CLINICAL HISTORY: Patient is 64 years old and is seen for screening. The patient has no family history of breast cancer. The patient has no personal history of cancer. VIEWS: The views performed were: bilateral craniocaudal with tomosynthesis and bilateral mediolateral oblique with tomosynthesis. FILMS COMPARED: The present examination has been compared to prior imaging studies performed at [facility] on 12/15/2010, 12/31/2012, 07/23/2014 and 12/04/2016. This study has been interpreted with the assistance of computer-aided detection. MAMMOGRAM FINDINGS: The breasts are heterogeneously dense, which could obscure a lesion on mammography. There are stable benign appearing calcifications seen in both breasts. There are no suspicious masses, suspicious calcifications, or new areas of architectural distortion. IMPRESSION: THERE IS NO MAMMOGRAPHIC EVIDENCE OF MALIGNANCY. A ROUTINE FOLLOW-UP MAMMOGRAM IN 1 YEAR IS RECOMMENDED. THE RESULTS OF THIS EXAM WERE SENT TO THE PATIENT. ACR BI-RADS Category 2 - Benign finding MAMMOGRAPHY NOTE: 1. A negative mammogram report should not delay a biopsy if a dominant of clinically suspicious mass is present. 2. Approximately 10% to 15% of breast cancers are not detected by mammography. 3. Adenosis and dense breasts may obscure an underlying neoplasm. Reported by: PEPE JEROME MD Electonically Signed: [id number]
== END 2019-12-15 15:01 | disposition home or self-care (01) ==
LOC: BICMAMMO 15:00
PROVIDERS: ATTEND Family Medicine
DX: Z12.31 Encounter for screening mammogram for malignant neoplasm of breast (principal); Z13.820 Encounter for screening for osteoporosis; R06.02 Shortness of breath; J98.4 Other disorders of lung; M85.852 Other specified disorders of bone density and structure, left thigh
CPT/HCPCS: 71046; 77063; 77067; 77080

== ENCOUNTER 2021-02-27 02:11 | Observation (INO) | payer MEDICARE, MEDICAID ==
[2021-02-27 02:55] LABS: #Basophils 0.1 thou/uL (0.0-0.2); #Eosinphils 0.2 thou/uL (0.0-0.7); #Lymphocytes 3.1 thou/uL (1.20-3.40); #Monocytes 0.7 thou/uL (0.11-0.59); #Neutrophils 3.6 thou/uL (1.40-6.50); %Basophils 1.5 % (0.0-1.0); %Lymphocytes 39.9 % (21.0-51.0); %Monocytes 9.6 % (0.0-10.0); Hemoglobin 11.9 g/dL (12.0-16.0); Mean Corpuscular HGB CONC 32.6 g/dL (32.0-36.0); Mean Corpuscular Hemoglobin 29.8 pg (27.0-31.0); Mean Corpuscular Volume 91.4 fL (78.0-98.0); Mean Platelet Volume 7.2 fL (7.4-10.4); Platelet Count 261 thou/uL (130-400); RBC Distribution Width 15.7 % (11.5-14.5); Red Blood Cell (RBC) Count 3.98 mill/uL (4.20-5.40); White Blood Cell (WBC) Count 7.7 thou/uL (4.8-10.8)
[2021-02-27] MEDS ORDERED: Morphine 4 MG/ML VIAL ONE (03:01)
[2021-02-27] MEDS ORDERED: Ondansetron PF 4 MG/2 ML Vial ONE (03:02)
[2021-02-27 03:16] LABS: ALT (SGPT) 12 U/L (8-55); AST (SGOT) 13 U/L (5-34); Albumin 3.7 g/dL (3.4-4.8); Alkaline Phosphatase 90 U/L (40-110); Anion Gap 18 mmol/L (10-20); BUN (Urea Nitrogen) 77 mg/dL (9.8-20.1); Bilirubin, Total 0.2 mg/dL (0.2-1.2); Calc. Creatinine Clearance 0 mL/min (70-130); Calcium 10.1 mg/dL (7.8-10.44); Carbon Dioxide 26 mmol/L (23-31); Chloride 96 mmol/L (98-107); Globulin 3.7 g/dL (2.4-3.5); Glucose 205 mg/dL (80-115); Lipase 86 U/L (8-78); Potassium 6.1 mmol/L (3.5-5.1); Protein, Total 7.4 g/dL (5.8-8.1); Sodium 134 mmol/L (136-145)
[2021-02-27] MEDS ORDERED: Dextrose 50% Abboject 50 ML SYRINGE ONE (03:30)
[2021-02-27] MEDS ORDERED: Sodium Bicarb 50 MEQ/50 ML Abboject 8.4% SYRINGE ONE (03:30)
[2021-02-27] MEDS ORDERED: Insulin Regular 300 UNITS/3 ML VIAL ONE (03:30)
[2021-02-27] MEDS ORDERED: Calcium Chloride 1 GM/10 ML Abboject SYRINGE ONE (03:30)
[2021-02-27 06:33] LABS: HBSAg Index 0.18 S/CO (0-0.99); Hep B Surf Ag Non-Reactive S/CO (NonReactive)
[2021-02-27] MEDS ORDERED: Dextrose 50% Abboject 50 ML SYRINGE SLOW IVP PRN (09:14)
[2021-02-27] MEDS ORDERED: HumaLOG 300 UNITS/3 ML VIAL SC PRN ×2 (09:14)
[2021-02-27] MEDS ORDERED: Dextrose 5% in Water 1,000 ML IV PRN (09:14)
[2021-02-27] MEDS ORDERED: Ondansetron ODT 4 MG TAB PO PRN (09:14)
[2021-02-27] MEDS: hydrALAZINE 20 MG/ML VIAL SLOW IVP PRN (10:57)
[2021-02-27 11:05] VITALS: BMI 32.0
[2021-02-27] MEDS: Heparin 5,000 UNITS/ML VIAL SC SCH (20:48)
[2021-02-27] MEDS: Acetaminophen 325 MG TAB PO PRN (20:48)
[2021-02-27 21:03] LABS: SARS-CoV-2 PCR by NAA Not Detected (NotDetected)
[2021-02-28] MEDS: hydrALAZINE 20 MG/ML VIAL SLOW IVP PRN (04:16)
[2021-02-28 05:02] LABS: Anion Gap 17 mmol/L (10-20); BUN (Urea Nitrogen) 44 mg/dL (9.8-20.1); Calc. Creatinine Clearance 11 mL/min (70-130); Calcium 9.5 mg/dL (7.8-10.44); Carbon Dioxide 25 mmol/L (23-31); Chloride 99 mmol/L (98-107); Glucose 124 mg/dL (80-115); Potassium 5.7 mmol/L (3.5-5.1); Sodium 135 mmol/L (136-145)
[2021-02-28 05:14] LABS: Hemoglobin 12.1 g/dL (12.0-16.0); Mean Corpuscular HGB CONC 31.6 g/dL (32.0-36.0); Mean Corpuscular Hemoglobin 28.9 pg (27.0-31.0); Mean Corpuscular Volume 91.4 fL (78.0-98.0); Mean Platelet Volume 8.8 fL (7.4-10.4); Platelet Count 158 thou/uL (130-400); RBC Distribution Width 15.5 % (11.5-14.5); Red Blood Cell (RBC) Count 4.21 mill/uL (4.20-5.40)
[2021-02-28 05:50] LABS: #Basophils 0.1 thou/uL (0.0-0.2); #Eosinphils 0.2 thou/uL (0.0-0.7); #Monocytes 0.8 thou/uL (0.11-0.59); %Basophils 0.8 % (0.0-1.0); %Eosinophils 1.8 % (0.0-10.0); %Lymphocytes 29.5 % (21.0-51.0); %Neutrophils 59.9 % (42.0-75.0); MDiff Complete? YES; Platelet Clumps SLIGHT; Platelet Morphology Comment Appears Adequate
[2021-02-28 07:29] LABS: Bacteria/HPF 4+ HPF (None Seen); RBC/HPF Greater than 50 HPF (0-3); Squamous Epithelial 21-50 HPF (0-3); WBC/HPF Greater than 50 HPF (0-3)
[2021-02-28 07:32] LABS: Bilirubin Negative (Negative); Blood, Urine 2+ (Negative); Clarity Extra Turbid (Clear); Glucose, Urine (Dipstick) 150 mg/dL (Negative); Ketone, Urine Negative (Negative); Leukocyte 500 Leu/uL (Negative); Nitrite 1+ (Negative); Protein, Urine (Dipstick) 300 mg/dL (Neg-Trace); Specific Gravity, Urine 1.011 (1.002-1.036); Urobilinogen Normal mg/dL (Less than 2)
[2021-02-28] MEDS: Heparin 5,000 UNITS/ML VIAL SC SCH (07:59)
[2021-02-28] MEDS: Acetaminophen 325 MG TAB PO PRN (07:59)
[2021-02-28] MEDS ORDERED: Lantus 1000 UNITS/10 ML VIAL SC SCH (09:00)
[2021-02-28] MEDS ORDERED: cefTRIAXone\\ROCEPHIN 1 GM in Sodium Chloride 0.9% 100 ML IVPB SCH (09:00)
[2021-02-28] MEDS ORDERED: Brimonidine Tartrate 0.2% Ophth Soln 5 ml Bottle EA EYE SCH (09:00)
[2021-02-28] MEDS ORDERED: Famotidine 20 MG TAB PO SCH (09:00)
[2021-02-28] MEDS ORDERED: Carvedilol 25 MG TAB PO SCH (09:00)
[2021-02-28] MEDS ORDERED: Timolol 0.5% Ophth Soln 5 ml Bottle EA EYE SCH (09:00)
[2021-02-28] MEDS ORDERED: Levothyroxine Sodium 100 MCG TAB PO SCH (09:00)
[2021-02-28 16:13] VITALS: BP 127/49; TEMP 97.9
== END 2021-02-28 18:32 | disposition home or self-care (01) ==
LOC: ERS 02:11 → ERHOLD 04:14 → 2NO 04:31
PROVIDERS: ADMIT Student in an Organized Health Care Education/Training Program; ATTEND Internal Medicine
DX: N39.0 Urinary tract infection, site not specified (principal); E87.5 Hyperkalemia; I12.0 Hypertensive chronic kidney disease with stage 5 chronic kidney disease or end stage renal disease; E11.22 Type 2 diabetes mellitus with diabetic chronic kidney disease; N18.6 End stage renal disease; E03.9 Hypothyroidism, unspecified; H54.7 Unspecified visual loss; Z79.4 Long term (current) use of insulin; Z79.899 Other long term (current) drug therapy; Z99.2 Dependence on renal dialysis; Z20.822 Contact with and (suspected) exposure to COVID-19
CPT/HCPCS: 74018; 80048; 80053; 81001; 82962 ×2; 83690; 85025 ×2; 87077; 87086; 87186; 87340; 93005; 96372; 96375; 96376; G0378 ×2; U0003; U0005; 36416; 87635; J0360; J0696; J1644; J1815; J2270; J2405; J3490

== ENCOUNTER 2021-07-05 22:43 | Observation (INO) | payer MEDICARE, MEDICAID ==
[2021-07-05] MEDS ORDERED: Nitroglycerin 0.4 MG TAB 1 EACH ONE (23:04)
[2021-07-05] MEDS ORDERED: Nitroglycerin 2% Ointment 1 INCH/1 GM Packet ONE (23:07)
[2021-07-05 23:23] LABS: #Basophils 0.1 thou/uL (0.0-0.2); #Eosinphils 0.1 thou/uL (0.0-0.7); #Lymphocytes 1.8 thou/uL (1.20-3.40); #Neutrophils 10.9 thou/uL (1.40-6.50); %Basophils 0.4 % (0.0-1.0); %Eosinophils 0.9 % (0.0-10.0); %Lymphocytes 12.8 % (21.0-51.0); %Monocytes 7.1 % (0.0-10.0); %Neutrophils 78.8 % (42.0-75.0); Hemoglobin 13.3 g/dL (12.0-16.0); Mean Corpuscular HGB CONC 32.1 g/dL (32.0-36.0); Mean Corpuscular Hemoglobin 30.9 pg (27.0-31.0); Mean Corpuscular Volume 96.3 fL (78.0-98.0); Mean Platelet Volume 8.1 fL (7.4-10.4); Platelet Count 208 thou/uL (130-400); RBC Distribution Width 15.6 % (11.5-14.5); Red Blood Cell (RBC) Count 4.29 mill/uL (4.20-5.40); White Blood Cell (WBC) Count 13.9 thou/uL (4.8-10.8)
[2021-07-05] MEDS ORDERED: Aspirin Chewable 81 MG TAB ONE (23:29)
[2021-07-05] MEDS ORDERED: Acetaminophen 500 MG TAB ONE (23:30)
[2021-07-05 23:41] LABS: ALT (SGPT) 13 U/L (8-55); AST (SGOT) 18 U/L (5-34); Albumin 4.4 g/dL (3.4-4.8); Alkaline Phosphatase 78 U/L (40-110); Anion Gap 19 mmol/L (10-20); BUN (Urea Nitrogen) 20 mg/dL (9.8-20.1); Bilirubin, Total 0.3 mg/dL (0.2-1.2); Calc. Creatinine Clearance 0 mL/min (70-130); Calcium 10.7 mg/dL (7.8-10.44); Carbon Dioxide 25 mmol/L (23-31); Chloride 96 mmol/L (98-107); Globulin 4.8 g/dL (2.4-3.5); Glucose 240 mg/dL (80-115); Magnesium 2.2 mg/dL (1.6-2.6); Potassium 4.7 mmol/L (3.5-5.1); Protein, Total 9.2 g/dL (5.8-8.1); Sodium 135 mmol/L (136-145)
[2021-07-06 00:24] LABS: SARS-CoV-2 NAA Rapid Test Not Detected (NotDetected)
[2021-07-06] MEDS ORDERED: Prevnar 13-Val Conj/PF 0.5 ML SYRINGE IM ONE (04:00)
[2021-07-06] MEDS ORDERED: Ondansetron PF 4 MG/2 ML Vial IVP PRN ×2 (06:46→11:39)
[2021-07-06] MEDS ORDERED: Acetaminophen 325 MG TAB PO PRN (06:49)
[2021-07-06] MEDS ORDERED: Ondansetron ODT 4 MG TAB PO PRN ×2 (06:49→11:39)
[2021-07-06 06:51] LABS: CKMB 0.8 ng/mL (0-6.6)
[2021-07-06] MEDS ORDERED: Labetalol HCl 100 MG/20 ML VIAL SLOW IVP PRN (11:39)
[2021-07-06] MEDS ORDERED: hydrALAZINE 20 MG/ML VIAL SLOW IVP PRN (11:39)
[2021-07-06] MEDS ORDERED: Acetaminophen 500 MG TAB PO PRN (11:39)
[2021-07-06] MEDS ORDERED: Carvedilol 25 MG TAB PO SCH ×2 (11:45→21:00)
[2021-07-06 12:04] LABS: #Basophils 0.1 thou/uL (0.0-0.2); #Eosinphils 0.1 thou/uL (0.0-0.7); #Lymphocytes 1.8 thou/uL (1.20-3.40); #Monocytes 1.1 thou/uL (0.11-0.59); #Neutrophils 7.2 thou/uL (1.40-6.50); %Basophils 0.8 % (0.0-1.0); %Lymphocytes 17.1 % (21.0-51.0); %Monocytes 11.1 % (0.0-10.0); %Neutrophils 70.1 % (42.0-75.0); Hemoglobin 12.8 g/dL (12.0-16.0); Mean Corpuscular HGB CONC 32.5 g/dL (32.0-36.0); Mean Corpuscular Hemoglobin 30.9 pg (27.0-31.0); Mean Corpuscular Volume 94.9 fL (78.0-98.0); Mean Platelet Volume 8.2 fL (7.4-10.4); Platelet Count 200 thou/uL (130-400); RBC Distribution Width 15.5 % (11.5-14.5); Red Blood Cell (RBC) Count 4.15 mill/uL (4.20-5.40); White Blood Cell (WBC) Count 10.3 thou/uL (4.8-10.8)
[2021-07-06 12:22] VITALS: TEMP 99.1
[2021-07-06 12:22] LABS: Anion Gap 22 mmol/L (10-20); BUN (Urea Nitrogen) 27 mg/dL (9.8-20.1); Calc. Creatinine Clearance 12 mL/min (70-130); Carbon Dioxide 23 mmol/L (23-31); Chloride 98 mmol/L (98-107); Glucose 174 mg/dL (80-115); Potassium 5.1 mmol/L (3.5-5.1); Sodium 138 mmol/L (136-145)
[2021-07-06 12:28] LABS: Troponin I 0.016 ng/mL (< 0.028)
[2021-07-06 14:13] VITALS: BP 160/68
[2021-07-06] MEDS ORDERED: Timolol 0.5% Ophth Soln 5 ml Bottle EA EYE SCH (21:00)
[2021-07-06] MEDS ORDERED: Brimonidine Tartrate 0.2% Ophth Soln 5 ml Bottle EA EYE SCH (21:00)
[2021-07-07] MEDS ORDERED: Levothyroxine Sodium 100 MCG TAB PO SCH (06:00)
[2021-07-07] MEDS ORDERED: Cholecalciferol 1,000 UNITS (25 MCG) TAB PO SCH (09:00)
[2021-07-07] MEDS ORDERED: Lantus 1000 UNITS/10 ML VIAL SC SCH (09:00)
== END 2021-07-06 14:33 | disposition home or self-care (01) ==
LOC: ERS 22:43 → ERHOLD 07-06 01:04 → 2SW 07-06 06:32
PROVIDERS: ADMIT Student in an Organized Health Care Education/Training Program; ATTEND Hospitalist
DX: R06.02 Shortness of breath (principal); I16.1 Hypertensive emergency; I13.11 Hypertensive heart and chronic kidney disease without heart failure, with stage 5 chronic kidney disease, or end stage renal disease; E11.22 Type 2 diabetes mellitus with diabetic chronic kidney disease; N18.6 End stage renal disease; E03.9 Hypothyroidism, unspecified; I25.10 Atherosclerotic heart disease of native coronary artery without angina pectoris; H54.7 Unspecified visual loss; Z79.4 Long term (current) use of insulin; Z79.899 Other long term (current) drug therapy; Z99.2 Dependence on renal dialysis; Z20.822 Contact with and (suspected) exposure to COVID-19
CPT/HCPCS: 71045; 80048; 82553; 83735; 83880; 84484 ×3; 85025; 93005; U0002; 36415; 80053; 84443; G0378

== ENCOUNTER 2022-09-17 20:25 | Inpatient (IN) | payer MEDICARE, MEDICAID ==
[2022-09-17 22:18] LABS: #Basophils 0.1 thou/uL (0.0-0.2); #Lymphocytes 1.3 thou/uL (1.20-3.40); #Neutrophils 10.9 thou/uL (1.40-6.50); %Basophils 0.5 % (0.0-1.0); %Eosinophils 0.3 % (0.0-10.0); %Lymphocytes 9.5 % (21.0-51.0); %Monocytes 7.7 % (0.0-10.0); Hemoglobin 10.1 g/dL (12.0-16.0); Mean Corpuscular HGB CONC 30.6 g/dL (32.0-36.0); Mean Corpuscular Hemoglobin 30.2 pg (27.0-31.0); Mean Corpuscular Volume 98.8 fl (78.0-98.0); Mean Platelet Volume 7.3 fL (7.4-10.4); Platelet Count 407 10x3/uL (130-400); RBC Distribution Width 18.1 % (11.5-14.5); Red Blood Cell (RBC) Count 3.34 mill/uL (4.20-5.40); White Blood Cell (WBC) Count 13.3 10x3/uL (4.8-10.8)
[2022-09-17 22:41] LABS: ALT (SGPT) 8 U/L (8-55); AST (SGOT) 15 U/L (5-34); Albumin 3.9 g/dL (3.4-4.8); Alkaline Phosphatase 105 U/L (40-110); Anion Gap 14 mmol/L (10-20); BUN (Urea Nitrogen) 12 mg/dL (9.8-20.1); Bilirubin, Total 0.5 mg/dL (0.2-1.2); Calc. Creatinine Clearance 0 mL/min (70-130); Carbon Dioxide 30 mmol/L (23-31); Chloride 95 mmol/L (98-107); Estimated GFR 11; Globulin 4.4 g/dL (2.4-3.5); Glucose 192 mg/dL (80-115); Potassium 4.5 mmol/L (3.5-5.1); Protein, Total 8.3 g/dL (5.8-8.1); Sodium 134 mmol/L (136-145)
[2022-09-17] MEDS ORDERED: Vancomycin 1 GM/200 ML (FROZEN) BAG ONE (23:59)
[2022-09-17] MEDS ORDERED: Cefepime 2 GM VIAL ONE (23:59)
[2022-09-18] MEDS ORDERED: Ondansetron PF 4 MG/2 ML Vial IVP PRN (01:30)
[2022-09-18] MEDS ORDERED: Ondansetron ODT 4 MG TAB SL PRN (01:30)
[2022-09-18] MEDS ORDERED: Acetaminophen 325 MG TAB PO PRN (01:48)
[2022-09-18] MEDS ORDERED: Acetaminophen 650 MG Suppository PR PRN (01:48)
[2022-09-18] MEDS ORDERED: Dextrose 5% in Water 1,000 ML IV PRN (02:57)
[2022-09-18] MEDS ORDERED: Dextrose 50% Abboject 50 ML SYRINGE SLOW IVP PRN (02:57)
[2022-09-18] MEDS: Levothyroxine Sodium 100 MCG TAB PO SCH (04:49)
[2022-09-18] MEDS: HumaLOG 300 UNITS/3 ML VIAL SC PRN (05:32)
[2022-09-18 06:00] LABS: SARS-CoV-2 NAA Rapid Test Not Detected (NotDetected)
[2022-09-18 06:49] LABS: #Basophils 0.1 thou/uL (0.0-0.2); #Eosinphils 0.1 thou/uL (0.0-0.7); #Lymphocytes 1.6 thou/uL (1.20-3.40); #Monocytes 1.2 thou/uL (0.11-0.59); %Basophils 0.6 % (0.0-1.0); %Eosinophils 0.6 % (0.0-10.0); %Lymphocytes 13.4 % (21.0-51.0); %Monocytes 9.9 % (0.0-10.0); %Neutrophils 75.5 % (42.0-75.0); Hemoglobin 10.2 g/dL (12.0-16.0); Mean Corpuscular HGB CONC 31.7 g/dL (32.0-36.0); Mean Corpuscular Hemoglobin 31.6 pg (27.0-31.0); Mean Corpuscular Volume 99.7 fl (78.0-98.0); Mean Platelet Volume 7.3 fL (7.4-10.4); Platelet Count 376 10x3/uL (130-400); RBC Distribution Width 17.7 % (11.5-14.5); Red Blood Cell (RBC) Count 3.23 mill/uL (4.20-5.40); White Blood Cell (WBC) Count 11.9 10x3/uL (4.8-10.8)
[2022-09-18] MEDS: Carvedilol 25 MG TAB PO SCH ×2 (09:08→22:05)
[2022-09-18] MEDS: Cinacalcet HCl 30 MG TAB PO SCH (09:09)
[2022-09-18] MEDS: Sevelamer Carbonate 800 MG TAB PO SCH (09:09)
[2022-09-18] MEDS: Timolol 0.5% Ophth Soln 5 ml Bottle EA EYE SCH ×2 (09:09→22:06)
[2022-09-18] MEDS: Brimonidine Tartrate 0.2% Ophth Soln 5 ml Bottle EA EYE SCH ×2 (09:09→22:06)
[2022-09-18] MEDS: Insulin Glargine 30 UNITS/0.3 ML VIAL SC SCH (09:09)
[2022-09-18] MEDS ORDERED: fentaNYL PF 100 MCG/2 ML SYRINGE ONE (12:00)
[2022-09-18] MEDS ORDERED: PROPOFOL 200 MG/20 ML VIAL ONE (13:03)
[2022-09-18] MEDS ORDERED: ePHEDrine 50 MG/ML VIAL ONE (13:03)
[2022-09-18] MEDS ORDERED: Ondansetron PF 4 MG/2 ML Vial ONE (13:03)
[2022-09-18] MEDS ORDERED: GLYCOPYRROLATE/PF 0.2 MG/ML VIAL ONE (13:03)
[2022-09-18] MEDS ORDERED: Metoclopramide HCl 10 MG/2 ML VIAL ONE (13:03)
[2022-09-18] MEDS ORDERED: Phenylephrine 10 MG/ML VIAL ONE (13:03)
[2022-09-18] MEDS ORDERED: traMADol HCl 50 MG TAB PO PRN (13:41)
[2022-09-18] MEDS ORDERED: Acetaminophen 500 MG TAB PO SCH (13:45)
[2022-09-18] MEDS ORDERED: Vancomycin Dose by Levels Sliding Scale (Wt 71-99) FS SCH (14:00)
[2022-09-18] MEDS ORDERED: Vancomycin HCl 500 MG in Sodium Chloride 0.9% 100 ML IVPB SCH (14:15)
[2022-09-18] MEDS ORDERED: Vancomycin Diaylsis Sliding Scale (Wt 71-99) FS SCH (14:15)
[2022-09-18] MEDS ORDERED: VANCOMYCIN 1.25 GM/250 ML BAG 1.25 GM in Premix Bag 1 BAG IVPB SCH (21:00)
[2022-09-18] MEDS: Gabapentin 300 MG CAP PO SCH (22:05)
[2022-09-18] MEDS: Cefepime 1 GM in Sodium Chloride 0.9% 100 ML IVPB SCH (22:06)
[2022-09-19] MEDS: Levothyroxine Sodium 100 MCG TAB PO SCH (05:38)
[2022-09-19 07:49] LABS: Vancomycin, Random 28.1 ug/mL (See Comment)
[2022-09-19] MEDS: Timolol 0.5% Ophth Soln 5 ml Bottle EA EYE SCH ×2 (08:19→21:42)
[2022-09-19] MEDS: Brimonidine Tartrate 0.2% Ophth Soln 5 ml Bottle EA EYE SCH ×2 (08:20→21:43)
[2022-09-19] MEDS: Carvedilol 25 MG TAB PO SCH ×2 (08:20→21:42)
[2022-09-19] MEDS: Sevelamer Carbonate 800 MG TAB PO SCH (08:22)
[2022-09-19] MEDS: Cinacalcet HCl 30 MG TAB PO SCH (08:22)
[2022-09-19] MEDS: Insulin Glargine 30 UNITS/0.3 ML VIAL SC SCH (08:24)
[2022-09-19] MEDS: Gabapentin 300 MG CAP PO SCH ×2 (08:25→21:42)
[2022-09-19 09:37] LABS: HBSAg Index 0.33 S/CO (0-0.99); Hep B Core Total Ab Non-Reactive (NonReactive); Hep B Core Total Index 0.13 S/CO (0-0.79); Hep B Surf Ag Non-Reactive S/CO (NonReactive); Hep C IgG Ab Non-Reactive (NonReactive); Hep C Index 0.18 S/CO (0-0.79)
[2022-09-19 10:29] LABS: HBSAB Concentration 87.11 mIU/mL; Hep B Surf AB Reactive (NonReactive)
[2022-09-19] MEDS: HumaLOG 300 UNITS/3 ML VIAL SC PRN ×2 (12:25→18:40)
[2022-09-19] MEDS: Guaifenesin DM 100-10/5 ML UDCUP PO PRN ×2 (13:11→21:53)
[2022-09-19] MEDS ORDERED: Heparin 10,000 UNITS/ 10 ML VIAL ONE (14:39)
[2022-09-19] MEDS: Cefepime 1 GM in Sodium Chloride 0.9% 100 ML IVPB SCH (21:41)
[2022-09-20] MEDS: HumaLOG 300 UNITS/3 ML VIAL SC PRN ×3 (01:00→17:50)
[2022-09-20] MEDS: Levothyroxine Sodium 100 MCG TAB PO SCH (05:22)
[2022-09-20 06:09] LABS: #Basophils 0.1 thou/uL (0.0-0.2); #Eosinphils 0.3 thou/uL (0.0-0.7); #Lymphocytes 1.6 thou/uL (1.20-3.40); #Monocytes 0.7 thou/uL (0.11-0.59); #Neutrophils 4.7 thou/uL (1.40-6.50); %Eosinophils 3.7 % (0.0-10.0); %Lymphocytes 21.4 % (21.0-51.0); %Monocytes 9.4 % (0.0-10.0); %Neutrophils 64.5 % (42.0-75.0); Hemoglobin 9.5 g/dL (12.0-16.0); Mean Platelet Volume 7.7 fL (7.4-10.4); Platelet Count 403 10x3/uL (130-400); Red Blood Cell (RBC) Count 3.08 mill/uL (4.20-5.40); White Blood Cell (WBC) Count 7.3 10x3/uL (4.8-10.8)
[2022-09-20 06:26] LABS: Anion Gap 13 mmol/L (10-20); BUN (Urea Nitrogen) 23 mg/dL (9.8-20.1); Calc. Creatinine Clearance 15 mL/min (70-130); Calcium 9.1 mg/dL (7.8-10.44); Carbon Dioxide 27 mmol/L (23-31); Chloride 97 mmol/L (98-107); Estimated GFR 9; Glucose 180 mg/dL (80-115); Potassium 4.4 mmol/L (3.5-5.1); Sodium 133 mmol/L (136-145)
[2022-09-20] MEDS: Apixaban 2.5 MG TAB PO SCH ×2 (08:25→20:05)
[2022-09-20] MEDS: Carvedilol 25 MG TAB PO SCH ×2 (08:31→20:05)
[2022-09-20] MEDS: Gabapentin 300 MG CAP PO SCH ×2 (08:31→20:05)
[2022-09-20] MEDS: Timolol 0.5% Ophth Soln 5 ml Bottle EA EYE SCH ×2 (08:32→20:05)
[2022-09-20] MEDS: Insulin Glargine 30 UNITS/0.3 ML VIAL SC SCH (08:32)
[2022-09-20] MEDS: Brimonidine Tartrate 0.2% Ophth Soln 5 ml Bottle EA EYE SCH ×2 (08:33→20:08)
[2022-09-20] MEDS: Cinacalcet HCl 30 MG TAB PO SCH (08:39)
[2022-09-20] MEDS: Sevelamer Carbonate 800 MG TAB PO SCH (08:39)
[2022-09-20] MEDS: Guaifenesin DM 100-10/5 ML UDCUP PO PRN (08:46)
[2022-09-20] MEDS: Cefepime 1 GM in Sodium Chloride 0.9% 100 ML IVPB SCH (20:08)
[2022-09-21] MEDS: HumaLOG 300 UNITS/3 ML VIAL SC PRN ×2 (00:35→05:51)
[2022-09-21] MEDS: Levothyroxine Sodium 100 MCG TAB PO SCH (05:51)
[2022-09-21 08:50] LABS: #Basophils 0.1 thou/uL (0.0-0.2); #Eosinphils 0.4 thou/uL (0.0-0.7); #Monocytes 0.7 thou/uL (0.11-0.59); #Neutrophils 3.7 thou/uL (1.40-6.50); %Basophils 1.4 % (0.0-1.0); %Eosinophils 5.5 % (0.0-10.0); %Lymphocytes 29.6 % (21.0-51.0); %Monocytes 9.5 % (0.0-10.0); %Neutrophils 54.1 % (42.0-75.0); Hemoglobin 10.6 g/dL (12.0-16.0); Mean Corpuscular HGB CONC 30.6 g/dL (32.0-36.0); Mean Corpuscular Hemoglobin 31.6 pg (27.0-31.0); Mean Platelet Volume 7.8 fL (7.4-10.4); Platelet Count 396 10x3/uL (130-400); RBC Distribution Width 18.2 % (11.5-14.5); Red Blood Cell (RBC) Count 3.34 mill/uL (4.20-5.40); White Blood Cell (WBC) Count 6.9 10x3/uL (4.8-10.8)
[2022-09-21] MEDS: Sevelamer Carbonate 800 MG TAB PO SCH (09:05)
[2022-09-21] MEDS: Apixaban 2.5 MG TAB PO SCH (09:05)
[2022-09-21] MEDS: Cinacalcet HCl 30 MG TAB PO SCH (09:05)
[2022-09-21] MEDS: Gabapentin 300 MG CAP PO SCH ×2 (09:05→20:49)
[2022-09-21] MEDS: Insulin Glargine 30 UNITS/0.3 ML VIAL SC SCH (09:06)
[2022-09-21] MEDS: Carvedilol 25 MG TAB PO SCH ×2 (09:06→20:49)
[2022-09-21] MEDS: Brimonidine Tartrate 0.2% Ophth Soln 5 ml Bottle EA EYE SCH ×2 (09:07→20:50)
[2022-09-21] MEDS: Timolol 0.5% Ophth Soln 5 ml Bottle EA EYE SCH ×2 (09:07→20:50)
[2022-09-21 09:55] LABS: Vancomycin, Random 18.8 ug/mL (See Comment)
[2022-09-21] MEDS ORDERED: Heparin 10,000 UNITS/ 10 ML VIAL ONE (10:44)
[2022-09-21 11:03] LABS: Anion Gap 20 mmol/L (10-20); BUN (Urea Nitrogen) 40 mg/dL (9.8-20.1); Calc. Creatinine Clearance 11 mL/min (70-130); Calcium 9.2 mg/dL (7.8-10.44); Carbon Dioxide 20 mmol/L (23-31); Chloride 96 mmol/L (98-107); Estimated GFR 6; Glucose 139 mg/dL (80-115); Potassium 4.7 mmol/L (3.5-5.1); Sodium 131 mmol/L (136-145)
[2022-09-21] MEDS: Vancomycin HCl 750 MG in Sodium Chloride 0.9% 250 ML 250 ML IVPB SCH ×2 (15:00→16:53)
[2022-09-21] MEDS ORDERED: Iopamidol-370 76% 500 ML 1 ML ONE (15:46)
[2022-09-21] MEDS: Cefepime 1 GM in Sodium Chloride 0.9% 100 ML IVPB SCH (20:49)
[2022-09-22] MEDS: HumaLOG 300 UNITS/3 ML VIAL SC PRN ×2 (04:49→11:53)
[2022-09-22] MEDS: Levothyroxine Sodium 100 MCG TAB PO SCH (04:54)
[2022-09-22 06:04] LABS: #Basophils 0.1 thou/uL (0.0-0.2); #Eosinphils 0.7 thou/uL (0.0-0.7); #Lymphocytes 1.8 thou/uL (1.20-3.40); #Monocytes 0.7 thou/uL (0.11-0.59); #Neutrophils 5.2 thou/uL (1.40-6.50); %Basophils 1.1 % (0.0-1.0); %Eosinophils 7.9 % (0.0-10.0); %Lymphocytes 21.4 % (21.0-51.0); %Monocytes 8.4 % (0.0-10.0); %Neutrophils 61.3 % (42.0-75.0); Hemoglobin 9.9 g/dL (12.0-16.0); Mean Corpuscular HGB CONC 31.3 g/dL (32.0-36.0); Mean Corpuscular Hemoglobin 31.3 pg (27.0-31.0); Mean Platelet Volume 7.7 fL (7.4-10.4); Platelet Count 441 10x3/uL (130-400); RBC Distribution Width 18.4 % (11.5-14.5); Red Blood Cell (RBC) Count 3.15 mill/uL (4.20-5.40); White Blood Cell (WBC) Count 8.4 10x3/uL (4.8-10.8)
[2022-09-22 06:24] LABS: Anion Gap 17 mmol/L (10-20); Calc. Creatinine Clearance 16 mL/min (70-130); Calcium 9.3 mg/dL (7.8-10.44); Carbon Dioxide 23 mmol/L (23-31); Chloride 97 mmol/L (98-107); Estimated GFR 10; Glucose 171 mg/dL (80-115); Sodium 132 mmol/L (136-145)
[2022-09-22 08:19] LABS: BUN (Urea Nitrogen) 21 mg/dL (9.8-20.1)
[2022-09-22] MEDS: Brimonidine Tartrate 0.2% Ophth Soln 5 ml Bottle EA EYE SCH ×2 (08:31→21:09)
[2022-09-22] MEDS: Timolol 0.5% Ophth Soln 5 ml Bottle EA EYE SCH ×2 (08:31→21:10)
[2022-09-22] MEDS: Insulin Glargine 30 UNITS/0.3 ML VIAL SC SCH (08:32)
[2022-09-22] MEDS: Carvedilol 25 MG TAB PO SCH ×2 (08:32→21:10)
[2022-09-22] MEDS: Sevelamer Carbonate 800 MG TAB PO SCH (08:32)
[2022-09-22] MEDS: Cinacalcet HCl 30 MG TAB PO SCH (08:32)
[2022-09-22] MEDS: Gabapentin 300 MG CAP PO SCH ×2 (08:32→21:09)
[2022-09-22] MEDS: Acetaminophen 500 MG TAB PO PRN (21:08)
[2022-09-22] MEDS: Cefepime 1 GM in Sodium Chloride 0.9% 100 ML IVPB SCH (21:10)
[2022-09-23] MEDS: HumaLOG 300 UNITS/3 ML VIAL SC PRN ×4 (00:46→20:41)
[2022-09-23] MEDS: Levothyroxine Sodium 100 MCG TAB PO SCH (05:32)
[2022-09-23 06:22] LABS: #Basophils 0.1 thou/uL (0.0-0.2); #Eosinphils 0.4 thou/uL (0.0-0.7); #Lymphocytes 2.1 thou/uL (1.20-3.40); #Monocytes 0.9 thou/uL (0.11-0.59); #Neutrophils 5.3 thou/uL (1.40-6.50); %Eosinophils 4.9 % (0.0-10.0); %Lymphocytes 23.5 % (21.0-51.0); %Neutrophils 60.6 % (42.0-75.0); Hemoglobin 8.9 g/dL (12.0-16.0); Mean Corpuscular HGB CONC 31.4 g/dL (32.0-36.0); Mean Corpuscular Hemoglobin 31.3 pg (27.0-31.0); Mean Corpuscular Volume 99.6 fl (78.0-98.0); Mean Platelet Volume 7.6 fL (7.4-10.4); Platelet Count 426 10x3/uL (130-400); RBC Distribution Width 18.5 % (11.5-14.5); Red Blood Cell (RBC) Count 2.84 mill/uL (4.20-5.40); White Blood Cell (WBC) Count 8.7 10x3/uL (4.8-10.8)
[2022-09-23 06:39] LABS: Anion Gap 16 mmol/L (10-20); BUN (Urea Nitrogen) 39 mg/dL (9.8-20.1); Calc. Creatinine Clearance 12 mL/min (70-130); Calcium 8.6 mg/dL (7.8-10.44); Carbon Dioxide 26 mmol/L (23-31); Chloride 96 mmol/L (98-107); Estimated GFR 7; Glucose 220 mg/dL (80-115); Potassium 4.8 mmol/L (3.5-5.1); Sodium 133 mmol/L (136-145)
[2022-09-23] MEDS: Brimonidine Tartrate 0.2% Ophth Soln 5 ml Bottle EA EYE SCH ×2 (08:14→20:39)
[2022-09-23] MEDS: Carvedilol 25 MG TAB PO SCH ×2 (08:15→20:38)
[2022-09-23] MEDS: Insulin Glargine 30 UNITS/0.3 ML VIAL SC SCH (08:15)
[2022-09-23] MEDS: Sevelamer Carbonate 800 MG TAB PO SCH (08:15)
[2022-09-23] MEDS: Cinacalcet HCl 30 MG TAB PO SCH (08:15)
[2022-09-23] MEDS: Gabapentin 300 MG CAP PO SCH ×2 (08:16→20:38)
[2022-09-23] MEDS: Timolol 0.5% Ophth Soln 5 ml Bottle EA EYE SCH ×2 (08:20→20:40)
[2022-09-23] MEDS ORDERED: EPOETIN ALFA-EPBX (ESRD) 10,000 UNIT/ML VIAL SC SCH (17:30)
[2022-09-23] MEDS: Cefepime 1 GM in Sodium Chloride 0.9% 100 ML IVPB SCH (20:39)
[2022-09-24] MEDS: Levothyroxine Sodium 100 MCG TAB PO SCH (05:49)
[2022-09-24 07:33] LABS: #Basophils 0.1 thou/uL (0.0-0.2); #Eosinphils 0.7 thou/uL (0.0-0.7); #Lymphocytes 2.3 thou/uL (1.20-3.40); #Monocytes 0.9 thou/uL (0.11-0.59); #Neutrophils 8.1 thou/uL (1.40-6.50); %Basophils 0.9 % (0.0-1.0); %Eosinophils 5.5 % (0.0-10.0); %Lymphocytes 19.3 % (21.0-51.0); %Monocytes 7.6 % (0.0-10.0); %Neutrophils 66.6 % (42.0-75.0); Hemoglobin 9.5 g/dL (12.0-16.0); Mean Corpuscular HGB CONC 32.6 g/dL (32.0-36.0); Mean Corpuscular Hemoglobin 32.3 pg (27.0-31.0); Mean Corpuscular Volume 99.1 fl (78.0-98.0); Mean Platelet Volume 7.6 fL (7.4-10.4); Platelet Count 465 10x3/uL (130-400); RBC Distribution Width 18.5 % (11.5-14.5); Red Blood Cell (RBC) Count 2.95 mill/uL (4.20-5.40); White Blood Cell (WBC) Count 12.1 10x3/uL (4.8-10.8)
[2022-09-24 07:48] LABS: Anion Gap 18 mmol/L (10-20); BUN (Urea Nitrogen) 60 mg/dL (9.8-20.1); Calc. Creatinine Clearance 10 mL/min (70-130); Calcium 8.9 mg/dL (7.8-10.44); Carbon Dioxide 21 mmol/L (23-31); Chloride 95 mmol/L (98-107); Estimated GFR 5; Glucose 171 mg/dL (80-115); Potassium 5.4 mmol/L (3.5-5.1); Sodium 129 mmol/L (136-145)
[2022-09-24] MEDS: Brimonidine Tartrate 0.2% Ophth Soln 5 ml Bottle EA EYE SCH ×2 (09:36→21:10)
[2022-09-24] MEDS: Sevelamer Carbonate 800 MG TAB PO SCH (09:36)
[2022-09-24] MEDS: Cinacalcet HCl 30 MG TAB PO SCH (09:36)
[2022-09-24] MEDS: Timolol 0.5% Ophth Soln 5 ml Bottle EA EYE SCH ×2 (09:36→21:10)
[2022-09-24] MEDS: Insulin Glargine 30 UNITS/0.3 ML VIAL SC SCH (09:36)
[2022-09-24] MEDS: Carvedilol 25 MG TAB PO SCH ×2 (09:36→21:10)
[2022-09-24] MEDS: Gabapentin 300 MG CAP PO SCH ×2 (09:36→21:09)
[2022-09-24] MEDS ORDERED: Heparin 10,000 UNITS/ 10 ML VIAL ONE ×2 (10:24→12:56)
[2022-09-24] MEDS ORDERED: Lidocaine 1% (PF) 30 ML VIAL ONE (12:56)
[2022-09-24] MEDS ORDERED: Protamine Sulfate 50 MG/5 ML VIAL ONE (15:01)
[2022-09-24] MEDS ORDERED: Iopamidol 370 76% 100 ML VIAL ONE (15:50)
[2022-09-24] MEDS ORDERED: Polyethylene Glycol 3350 17 GM Packet PO PRN (16:26)
[2022-09-24] MEDS ORDERED: Vancomycin HCl 750 MG in Sodium Chloride 0.9% 250 ML 250 ML IVPB SCH (17:00)
[2022-09-24] MEDS: Cefepime 1 GM in Sodium Chloride 0.9% 100 ML IVPB SCH (21:09)
[2022-09-24] MEDS: Senokot S 8.6-50 MG TAB PO SCH (21:11)
[2022-09-25] MEDS: HumaLOG 300 UNITS/3 ML VIAL SC PRN ×2 (00:49→05:37)
[2022-09-25] MEDS: Levothyroxine Sodium 100 MCG TAB PO SCH (05:37)
[2022-09-25 06:35] LABS: #Basophils 0.1 thou/uL (0.0-0.2); #Eosinphils 0.3 thou/uL (0.0-0.7); #Lymphocytes 1.5 thou/uL (1.20-3.40); #Monocytes 0.7 thou/uL (0.11-0.59); #Neutrophils 7.1 thou/uL (1.40-6.50); %Eosinophils 2.6 % (0.0-10.0); %Lymphocytes 15.4 % (21.0-51.0); %Monocytes 7.6 % (0.0-10.0); %Neutrophils 73.4 % (42.0-75.0); Hemoglobin 9.1 g/dL (12.0-16.0); Mean Corpuscular HGB CONC 32.1 g/dL (32.0-36.0); Mean Corpuscular Hemoglobin 31.5 pg (27.0-31.0); Mean Corpuscular Volume 98.3 fl (78.0-98.0); Mean Platelet Volume 7.5 fL (7.4-10.4); Platelet Count 405 10x3/uL (130-400); RBC Distribution Width 18.4 % (11.5-14.5); Red Blood Cell (RBC) Count 2.87 mill/uL (4.20-5.40); White Blood Cell (WBC) Count 9.7 10x3/uL (4.8-10.8)
[2022-09-25 07:08] LABS: Anion Gap 19 mmol/L (10-20); BUN (Urea Nitrogen) 35 mg/dL (9.8-20.1); Calc. Creatinine Clearance 13 mL/min (70-130); Calcium 8.8 mg/dL (7.8-10.44); Carbon Dioxide 23 mmol/L (23-31); Chloride 99 mmol/L (98-107); Estimated GFR 7; Glucose 303 mg/dL (80-115); Potassium 5.7 mmol/L (3.5-5.1); Sodium 135 mmol/L (136-145)
[2022-09-25] MEDS: Brimonidine Tartrate 0.2% Ophth Soln 5 ml Bottle EA EYE SCH ×2 (09:31→20:54)
[2022-09-25] MEDS: Carvedilol 25 MG TAB PO SCH ×2 (09:33→20:49)
[2022-09-25] MEDS: Timolol 0.5% Ophth Soln 5 ml Bottle EA EYE SCH ×2 (09:33→20:53)
[2022-09-25] MEDS: Insulin Glargine 30 UNITS/0.3 ML VIAL SC SCH (09:47)
[2022-09-25] MEDS: Cinacalcet HCl 30 MG TAB PO SCH (09:47)
[2022-09-25] MEDS: Senokot S 8.6-50 MG TAB PO SCH ×2 (09:47→20:54)
[2022-09-25] MEDS: Gabapentin 300 MG CAP PO SCH ×2 (09:47→20:50)
[2022-09-25] MEDS: Sevelamer Carbonate 800 MG TAB PO SCH (09:48)
[2022-09-25] MEDS ORDERED: Heparin 10,000 UNITS/ 10 ML VIAL ONE (14:04)
[2022-09-25] MEDS ORDERED: Fentanyl 250 MCG/5 ML VIAL ONE (16:45)
[2022-09-25] MEDS ORDERED: PROPOFOL 200 MG/20 ML VIAL ONE (16:55)
[2022-09-25] MEDS ORDERED: PHENYLEPHRINE-NS 100 MCG/ML 10 ML SYRINGE ONE (16:55)
[2022-09-25] MEDS ORDERED: Ondansetron PF 4 MG/2 ML Vial ONE (16:55)
[2022-09-25] MEDS ORDERED: Lidocaine 1% PF 5 ML VIAL ONE (16:55)
[2022-09-25] MEDS ORDERED: ePHEDrine 50 MG/ML VIAL ONE (16:55)
[2022-09-25] MEDS ORDERED: Ondansetron HCl/PF 4 MG/2 ML Vial IVP PRN (18:05)
[2022-09-25] MEDS ORDERED: Fentanyl 100 MCG/2 ML VIAL ONE (18:16)
[2022-09-25 20:08] LABS: Anion Gap 17 mmol/L (10-20); BUN (Urea Nitrogen) 43 mg/dL (9.8-20.1); Calc. Creatinine Clearance 11 mL/min (70-130); Calcium 9.2 mg/dL (7.8-10.44); Carbon Dioxide 23 mmol/L (23-31); Chloride 102 mmol/L (98-107); Estimated GFR 6; Glucose 222 mg/dL (80-115); Potassium 5.9 mmol/L (3.5-5.1); Sodium 136 mmol/L (136-145)
[2022-09-25] MEDS: Morphine 4 MG/ML VIAL SLOW IVP PRN (20:52)
[2022-09-25] MEDS: Cefepime 1 GM in Sodium Chloride 0.9% 100 ML IVPB SCH (22:00)
[2022-09-26] MEDS: Morphine 4 MG/ML VIAL SLOW IVP PRN ×4 (00:45→17:53)
[2022-09-26] MEDS ORDERED: Cefepime 1 GM in Sodium Chloride 0.9% 100 ML IVPB SCH (02:00)
[2022-09-26] MEDS: Levothyroxine Sodium 100 MCG TAB PO SCH (05:04)
[2022-09-26 05:31] LABS: #Basophils 0.1 thou/uL (0.0-0.2); #Eosinphils 0.2 thou/uL (0.0-0.7); #Lymphocytes 1.8 thou/uL (1.20-3.40); #Monocytes 0.8 thou/uL (0.11-0.59); #Neutrophils 8.6 thou/uL (1.40-6.50); %Basophils 0.8 % (0.0-1.0); %Eosinophils 1.7 % (0.0-10.0); %Lymphocytes 15.7 % (21.0-51.0); %Monocytes 6.6 % (0.0-10.0); %Neutrophils 75.2 % (42.0-75.0); Mean Corpuscular HGB CONC 31.4 g/dL (32.0-36.0); Mean Corpuscular Hemoglobin 30.5 pg (27.0-31.0); Mean Corpuscular Volume 97.2 fl (78.0-98.0); Mean Platelet Volume 7.6 fL (7.4-10.4); Platelet Count 345 10x3/uL (130-400); RBC Distribution Width 17.8 % (11.5-14.5); Red Blood Cell (RBC) Count 2.94 mill/uL (4.20-5.40); White Blood Cell (WBC) Count 11.4 10x3/uL (4.8-10.8)
[2022-09-26 05:54] LABS: Anion Gap 14 mmol/L (10-20); BUN (Urea Nitrogen) 19 mg/dL (9.8-20.1); Calc. Creatinine Clearance 19 mL/min (70-130); Calcium 9.4 mg/dL (7.8-10.44); Carbon Dioxide 29 mmol/L (23-31); Chloride 100 mmol/L (98-107); Estimated GFR 12; Glucose 189 mg/dL (80-115); Potassium 4.3 mmol/L (3.5-5.1); Sodium 139 mmol/L (136-145)
[2022-09-26] MEDS: HumaLOG 300 UNITS/3 ML VIAL SC PRN ×3 (06:24→17:10)
[2022-09-26] MEDS: Brimonidine Tartrate 0.2% Ophth Soln 5 ml Bottle EA EYE SCH ×2 (09:30→21:59)
[2022-09-26] MEDS: Timolol 0.5% Ophth Soln 5 ml Bottle EA EYE SCH ×2 (09:30→21:59)
[2022-09-26] MEDS: Insulin Glargine 30 UNITS/0.3 ML VIAL SC SCH (09:30)
[2022-09-26] MEDS: Cinacalcet HCl 30 MG TAB PO SCH (09:31)
[2022-09-26] MEDS: Carvedilol 25 MG TAB PO SCH ×2 (09:31→21:58)
[2022-09-26] MEDS: Sevelamer Carbonate 800 MG TAB PO SCH (09:31)
[2022-09-26] MEDS: Senokot S 8.6-50 MG TAB PO SCH ×2 (09:31→21:59)
[2022-09-26] MEDS: Gabapentin 300 MG CAP PO SCH ×2 (09:32→21:58)
[2022-09-26 12:13] LABS: Vancomycin, Random 10.9 ug/mL (See Comment)
[2022-09-26] MEDS ORDERED: Vancomycin 1 GM in Premix Bag 1 BAG IVPB SCH ×2 (12:45→13:30)
[2022-09-27 06:37] LABS: #Basophils 0.1 thou/uL (0.0-0.2); #Eosinphils 0.2 thou/uL (0.0-0.7); #Lymphocytes 2.2 thou/uL (1.20-3.40); #Monocytes 1.1 thou/uL (0.11-0.59); #Neutrophils 7.9 thou/uL (1.40-6.50); %Basophils 0.8 % (0.0-1.0); %Eosinophils 1.7 % (0.0-10.0); %Lymphocytes 19.3 % (21.0-51.0); %Monocytes 9.3 % (0.0-10.0); Hemoglobin 8.3 g/dL (12.0-16.0); Mean Corpuscular HGB CONC 31.7 g/dL (32.0-36.0); Mean Corpuscular Volume 97.9 fl (78.0-98.0); Mean Platelet Volume 7.5 fL (7.4-10.4); Platelet Count 333 10x3/uL (130-400); RBC Distribution Width 17.9 % (11.5-14.5); Red Blood Cell (RBC) Count 2.68 mill/uL (4.20-5.40); White Blood Cell (WBC) Count 11.5 10x3/uL (4.8-10.8)
[2022-09-27 06:57] LABS: Anion Gap 18 mmol/L (10-20); BUN (Urea Nitrogen) 34 mg/dL (9.8-20.1); Calc. Creatinine Clearance 12 mL/min (70-130); Calcium 9.2 mg/dL (7.8-10.44); Carbon Dioxide 25 mmol/L (23-31); Chloride 100 mmol/L (98-107); Estimated GFR 7; Glucose 127 mg/dL (80-115); Potassium 5.7 mmol/L (3.5-5.1); Sodium 137 mmol/L (136-145)
[2022-09-27] MEDS: Levothyroxine Sodium 100 MCG TAB PO SCH (07:28)
[2022-09-27] MEDS: Timolol 0.5% Ophth Soln 5 ml Bottle EA EYE SCH ×2 (08:52→20:49)
[2022-09-27] MEDS: Insulin Glargine 30 UNITS/0.3 ML VIAL SC SCH (08:52)
[2022-09-27] MEDS: Brimonidine Tartrate 0.2% Ophth Soln 5 ml Bottle EA EYE SCH ×2 (08:52→20:48)
[2022-09-27] MEDS: Senokot S 8.6-50 MG TAB PO SCH ×2 (08:53→20:48)
[2022-09-27] MEDS: Sevelamer Carbonate 800 MG TAB PO SCH (08:53)
[2022-09-27] MEDS: Acetaminophen 500 MG TAB PO PRN (08:53)
[2022-09-27] MEDS: Gabapentin 300 MG CAP PO SCH ×2 (08:54→20:48)
[2022-09-27] MEDS: Cinacalcet HCl 30 MG TAB PO SCH (08:55)
[2022-09-27] MEDS: Carvedilol 25 MG TAB PO SCH ×2 (08:55→20:48)
[2022-09-27] MEDS ORDERED: Morphine 4 MG/ML VIAL SLOW IVP PRN (11:18)
[2022-09-27] MEDS ORDERED: HYDROcodone/Acetaminophen 5/325 mg Tablet PO PRN (11:19)
[2022-09-27] MEDS ORDERED: Triple Antibiotic Oint 1 GM Packet TOP SCH (12:45)
[2022-09-27 13:19] VITALS: BMI 32.8
[2022-09-27] MEDS ORDERED: Triple Antibiotic Oint 1 GM Packet TOP PRN (13:33)
[2022-09-27] MEDS: Apixaban 2.5 MG TAB PO SCH (20:49)
[2022-09-28] MEDS: Levothyroxine Sodium 100 MCG TAB PO SCH (06:02)
[2022-09-28 06:41] LABS: #Basophils 0.1 thou/uL (0.0-0.2); #Eosinphils 0.3 thou/uL (0.0-0.7); #Lymphocytes 2.2 thou/uL (1.20-3.40); #Neutrophils 8.2 thou/uL (1.40-6.50); %Basophils 0.9 % (0.0-1.0); %Eosinophils 2.3 % (0.0-10.0); %Lymphocytes 18.8 % (21.0-51.0); %Monocytes 8.3 % (0.0-10.0); %Neutrophils 69.7 % (42.0-75.0); Hemoglobin 7.9 g/dL (12.0-16.0); Mean Corpuscular Hemoglobin 30.5 pg (27.0-31.0); Mean Corpuscular Volume 98.6 fl (78.0-98.0); Mean Platelet Volume 7.7 fL (7.4-10.4); Platelet Count 332 10x3/uL (130-400); RBC Distribution Width 17.8 % (11.5-14.5); Red Blood Cell (RBC) Count 2.59 mill/uL (4.20-5.40); White Blood Cell (WBC) Count 11.7 10x3/uL (4.8-10.8)
[2022-09-28 06:46] LABS: Anion Gap 15 mmol/L (10-20); BUN (Urea Nitrogen) 46 mg/dL (9.8-20.1); Calc. Creatinine Clearance 9 mL/min (70-130); Calcium 8.6 mg/dL (7.8-10.44); Carbon Dioxide 28 mmol/L (23-31); Chloride 96 mmol/L (98-107); Estimated GFR 5; Glucose 126 mg/dL (80-115); Sodium 133 mmol/L (136-145)
[2022-09-28 06:50] LABS: Potassium 6.2 mmol/L (3.5-5.1)
[2022-09-28] MEDS: Sevelamer Carbonate 800 MG TAB PO SCH ×2 (09:34→10:17)
[2022-09-28] MEDS: Cinacalcet HCl 30 MG TAB PO SCH ×2 (09:35→10:17)
[2022-09-28] MEDS: Senokot S 8.6-50 MG TAB PO SCH ×3 (09:35→20:22)
[2022-09-28] MEDS: Brimonidine Tartrate 0.2% Ophth Soln 5 ml Bottle EA EYE SCH ×2 (09:35→20:33)
[2022-09-28] MEDS: Timolol 0.5% Ophth Soln 5 ml Bottle EA EYE SCH ×2 (09:35→21:59)
[2022-09-28] MEDS: Gabapentin 300 MG CAP PO SCH ×3 (09:35→20:21)
[2022-09-28] MEDS: Carvedilol 25 MG TAB PO SCH ×3 (09:35→20:21)
[2022-09-28] MEDS: Apixaban 2.5 MG TAB PO SCH ×3 (09:35→20:22)
[2022-09-28] MEDS: Insulin Glargine 30 UNITS/0.3 ML VIAL SC SCH (09:36)
[2022-09-28] MEDS ORDERED: Heparin 10,000 UNITS/ 10 ML VIAL ONE (12:18)
[2022-09-28] MEDS ORDERED: traMADol HCl 50 MG TAB PO PRN (13:43)
[2022-09-28] MEDS ORDERED: Dextrose 25% Abboject 10 ML SYRINGE SLOW IVP ONE (16:58)
[2022-09-28] MEDS: Acetaminophen 500 MG TAB PO PRN (20:22)
[2022-09-29 05:19] LABS: #Basophils 0.1 thou/uL (0.0-0.2); #Eosinphils 0.1 thou/uL (0.0-0.7); #Lymphocytes 2.1 thou/uL (1.20-3.40); #Monocytes 1.1 thou/uL (0.11-0.59); #Neutrophils 8.4 thou/uL (1.40-6.50); %Basophils 0.9 % (0.0-1.0); %Eosinophils 1.2 % (0.0-10.0); %Lymphocytes 17.8 % (21.0-51.0); %Monocytes 9.1 % (0.0-10.0); Hemoglobin 8.7 g/dL (12.0-16.0); Mean Corpuscular HGB CONC 31.8 g/dL (32.0-36.0); Mean Corpuscular Hemoglobin 30.9 pg (27.0-31.0); Mean Corpuscular Volume 97.2 fl (78.0-98.0); Mean Platelet Volume 7.7 fL (7.4-10.4); Platelet Count 331 10x3/uL (130-400); RBC Distribution Width 17.2 % (11.5-14.5); Red Blood Cell (RBC) Count 2.82 mill/uL (4.20-5.40); White Blood Cell (WBC) Count 11.8 10x3/uL (4.8-10.8)
[2022-09-29 05:40] LABS: Anion Gap 18 mmol/L (10-20); BUN (Urea Nitrogen) 29 mg/dL (9.8-20.1); Calc. Creatinine Clearance 12 mL/min (70-130); Calcium 9.6 mg/dL (7.8-10.44); Carbon Dioxide 29 mmol/L (23-31); Chloride 97 mmol/L (98-107); Estimated GFR 7; Glucose 96 mg/dL (80-115); Potassium 4.6 mmol/L (3.5-5.1); Sodium 139 mmol/L (136-145)
[2022-09-29] MEDS: Levothyroxine Sodium 100 MCG TAB PO SCH (05:40)
[2022-09-29] MEDS: Insulin Glargine 30 UNITS/0.3 ML VIAL SC SCH (07:18)
[2022-09-29] MEDS: Timolol 0.5% Ophth Soln 5 ml Bottle EA EYE SCH (08:46)
[2022-09-29] MEDS: Brimonidine Tartrate 0.2% Ophth Soln 5 ml Bottle EA EYE SCH (08:46)
[2022-09-29] MEDS: Apixaban 2.5 MG TAB PO SCH (08:47)
[2022-09-29] MEDS: Gabapentin 300 MG CAP PO SCH (08:47)
[2022-09-29] MEDS: Carvedilol 25 MG TAB PO SCH (08:47)
[2022-09-29] MEDS: Cinacalcet HCl 30 MG TAB PO SCH (08:47)
[2022-09-29] MEDS: Senokot S 8.6-50 MG TAB PO SCH (08:47)
[2022-09-29] MEDS: Sevelamer Carbonate 800 MG TAB PO SCH (08:47)
[2022-09-29 15:38] VITALS: BP 143/50; TEMP 97.7
== END 2022-09-29 18:56 | DRG 239 ==
LOC: ERS 20:25 → SURG B 23:33 → NEURO 09-25 23:34
PROVIDERS: ADMIT Family Medicine; ATTEND Family Medicine
PROC: 5A1D70Z Performance of Urinary Filtration, Intermittent, Less than 6 Hours Per Day (ICD-10-PCS; 2022-09-17)
PROC: 0Y6N0Z9 Detachment at Left Foot, Partial 1st Ray, Open Approach (ICD-10-PCS; principal; 2022-09-18)
PROC: 047N341 Dilation of Left Popliteal Artery with Drug-eluting Intraluminal Device, using Drug-Coated Balloon, Percutaneous Approach (ICD-10-PCS; 2022-09-24)
PROC: 047Q3Z1 Dilation of Left Anterior Tibial Artery using Drug-Coated Balloon, Percutaneous Approach (ICD-10-PCS; 2022-09-24)
PROC: 0Y6J0Z1 Detachment at Left Lower Leg, High, Open Approach (ICD-10-PCS; 2022-09-25)
PROC: 30233N1 Transfusion of Nonautologous Red Blood Cells into Peripheral Vein, Percutaneous Approach (ICD-10-PCS; 2022-09-25)
PROC: 06HY33Z Insertion of Infusion Device into Lower Vein, Percutaneous Approach (ICD-10-PCS; 2022-09-26)
DX: E11.52 Type 2 diabetes mellitus with diabetic peripheral angiopathy with gangrene (principal); N18.6 End stage renal disease; I12.0 Hypertensive chronic kidney disease with stage 5 chronic kidney disease or end stage renal disease; M86.172 Other acute osteomyelitis, left ankle and foot; J98.11 Atelectasis; Z20.822 Contact with and (suspected) exposure to COVID-19; I82.402 Acute embolism and thrombosis of unspecified deep veins of left lower extremity; E11.22 Type 2 diabetes mellitus with diabetic chronic kidney disease; E03.9 Hypothyroidism, unspecified; E11.319 Type 2 diabetes mellitus with unspecified diabetic retinopathy without macular edema; E11.69 Type 2 diabetes mellitus with other specified complication; H54.7 Unspecified visual loss; D63.1 Anemia in chronic kidney disease; H40.9 Unspecified glaucoma; Z79.4 Long term (current) use of insulin; Z99.2 Dependence on renal dialysis; Z79.01 Long term (current) use of anticoagulants; Z79.890 Hormone replacement therapy; Z79.899 Other long term (current) drug therapy; K59.00 Constipation, unspecified
CPT/HCPCS: 36247; 36415; 36416; 36430; 37224; 37228; 70450; 75635; 80048; 80053; 80202; 83605; 85025; 85347; 85652; 86140; 86704; 86850; 86900; 86901; 87040; 87811; 88305; 88307; 88311; 90935; 93005; 93010; 97139; C1725; C1769; C1887; G0257; J0692; J1644; J1815; J2001; J2270; J2370; J2405; J2704; J2720; J2765; J3010; J3370; J3370-JW; J3490; J7050; P9016; Q5105; Q9967; U0002

== ENCOUNTER 2022-11-20 17:08 | Inpatient (IN) | payer MEDICARE, MEDICAID ==
[2022-11-20] MEDS ORDERED: traMADol HCl 50 MG TAB PO PRN ×2 (18:31→18:38)
[2022-11-20] MEDS ORDERED: HumaLOG 300 UNITS/3 ML VIAL SC PRN ×2 (18:31→19:40)
[2022-11-20] MEDS ORDERED: TETANUS, DIPHTHERIA TOX,ADULT (TDVAX) 0.5 ML VIAL IM ONE (18:31)
[2022-11-20] MEDS ORDERED: Ondansetron ODT 4 MG TAB PO PRN (18:31)
[2022-11-20] MEDS ORDERED: Dextrose 5% in Water 1,000 ML IV PRN (18:31)
[2022-11-20] MEDS ORDERED: Ipratropium/Albuterol 3 ML NEB NEB PRN ×2 (18:31→18:38)
[2022-11-20] MEDS ORDERED: Dextrose 50% Abboject 50 ML SYRINGE SLOW IVP PRN (18:31)
[2022-11-20] MEDS ORDERED: HYDROcodone/Acetaminophen 5/325 mg Tablet PO PRN (18:38)
[2022-11-20 18:39] LABS: #Basophils 0.1 thou/uL (0.0-0.2); #Eosinphils 0.1 thou/uL (0.0-0.7); #Lymphocytes 3.3 thou/uL (1.20-3.40); #Monocytes 0.5 thou/uL (0.11-0.59); #Neutrophils 2.8 thou/uL (1.40-6.50); %Basophils 1.2 % (0.0-1.0); %Eosinophils 0.9 % (0.0-10.0); %Lymphocytes 48.4 % (21.0-51.0); %Monocytes 7.9 % (0.0-10.0); %Neutrophils 41.6 % (42.0-75.0); Hemoglobin 11.5 g/dL (12.0-16.0); Mean Corpuscular HGB CONC 32.3 g/dL (32.0-36.0); Mean Corpuscular Hemoglobin 30.6 pg (27.0-31.0); Mean Corpuscular Volume 94.6 fl (78.0-98.0); Mean Platelet Volume 8.2 fL (7.4-10.4); Platelet Count 273 10x3/uL (130-400); RBC Distribution Width 19.7 % (11.5-14.5); Red Blood Cell (RBC) Count 3.77 mill/uL (4.20-5.40); White Blood Cell (WBC) Count 6.8 10x3/uL (4.8-10.8)
[2022-11-20 19:02] LABS: ALT (SGPT) 10 U/L (8-55); AST (SGOT) 13 U/L (5-34); Alkaline Phosphatase 99 U/L (40-110); Anion Gap 16 mmol/L (10-20); BUN (Urea Nitrogen) 36 mg/dL (9.8-20.1); Bilirubin, Total 0.4 mg/dL (0.2-1.2); Calc. Creatinine Clearance 0 mL/min (70-130); Carbon Dioxide 25 mmol/L (23-31); Chloride 96 mmol/L (98-107); Estimated GFR 8; Glucose 179 mg/dL (80-115); Potassium 4.1 mmol/L (3.5-5.1); Sodium 133 mmol/L (136-145)
[2022-11-20] MEDS ORDERED: Vancomycin Diaylsis Sliding Scale (Wt 71-99) FS SCH (19:15)
[2022-11-20] MEDS ORDERED: Cefepime 2 GM VIAL ONE (19:27)
[2022-11-20] MEDS ORDERED: hydrALAZINE 20 MG/ML VIAL SLOW IVP SCH (19:45)
[2022-11-20] MEDS ORDERED: hydrALAZINE 20 MG/ML VIAL ONE (19:59)
[2022-11-20] MEDS ORDERED: Cefepime 1 GM in Sodium Chloride 0.9% 100 ML IVPB SCH (20:00)
[2022-11-20] MEDS ORDERED: Vancomycin 1 GM/200 ML (FROZEN) BAG ONE (20:13)
[2022-11-20] MEDS ORDERED: VANCOMYCIN 1.25 GM/250 ML BAG 1.25 GM in Premix Bag 1 BAG IVPB SCH (21:00)
[2022-11-20] MEDS ORDERED: Cefepime 2 GM in Sodium Chloride 0.9% 100 ML IVPB SCH (21:00)
[2022-11-20] MEDS ORDERED: Vancomycin HCl 750 MG in Sodium Chloride 0.9% 250 ML 250 ML IVPB SCH (21:00)
[2022-11-20] MEDS ORDERED: VANCOMYCIN 1.75 GM/500 ML BAG 1.75 GM in Premix Bag 1 BAG IVPB SCH (22:15)
[2022-11-20 22:29] VITALS: BMI 32.8
[2022-11-20] MEDS: Gabapentin 300 MG CAP PO SCH (22:52)
[2022-11-20] MEDS: Famotidine 20 MG TAB PO SCH (22:52)
[2022-11-20] MEDS: Carvedilol 25 MG TAB PO SCH (22:52)
[2022-11-20] MEDS: Timolol 0.5% Ophth Soln 5 ml Bottle EA EYE SCH (23:14)
[2022-11-21 01:44] LABS: HBSAg Index 0.32 S/CO (0-0.99); Hep B Core Total Ab Non-Reactive (NonReactive); Hep B Core Total Index 0.17 S/CO (0-0.79); Hep B Surf Ag Non-Reactive S/CO (NonReactive); Hep C IgG Ab Non-Reactive (NonReactive); Hep C Index 0.18 S/CO (0-0.79)
[2022-11-21 02:10] LABS: HBSAB Concentration 127.65 mIU/mL; Hep B Surf AB Reactive (NonReactive)
[2022-11-21 03:23] LABS: SARS-CoV-2 NAA Rapid Test DETECTED (NotDetected)
[2022-11-21] MEDS: Levothyroxine Sodium 100 MCG TAB PO SCH (06:11)
[2022-11-21 06:24] LABS: #Basophils 0.1 thou/uL (0.0-0.2); #Eosinphils 0.1 thou/uL (0.0-0.7); #Lymphocytes 2.3 thou/uL (1.20-3.40); #Monocytes 0.6 thou/uL (0.11-0.59); #Neutrophils 2.6 thou/uL (1.40-6.50); %Basophils 1.7 % (0.0-1.0); %Eosinophils 1.8 % (0.0-10.0); %Monocytes 10.3 % (0.0-10.0); %Neutrophils 45.3 % (42.0-75.0); Hemoglobin 10.9 g/dL (12.0-16.0); Mean Corpuscular HGB CONC 32.4 g/dL (32.0-36.0); Mean Corpuscular Hemoglobin 30.8 pg (27.0-31.0); Mean Corpuscular Volume 94.9 fl (78.0-98.0); Mean Platelet Volume 7.8 fL (7.4-10.4); Platelet Count 249 10x3/uL (130-400); RBC Distribution Width 19.6 % (11.5-14.5); Red Blood Cell (RBC) Count 3.55 mill/uL (4.20-5.40); White Blood Cell (WBC) Count 5.7 10x3/uL (4.8-10.8)
[2022-11-21 06:47] LABS: Anion Gap 12 mmol/L (10-20); BUN (Urea Nitrogen) 36 mg/dL (9.8-20.1); Calc. Creatinine Clearance 11 mL/min (70-130); Calcium 9.5 mg/dL (7.8-10.44); Carbon Dioxide 27 mmol/L (23-31); Chloride 99 mmol/L (98-107); Estimated GFR 7; Glucose 97 mg/dL (80-115); Potassium 3.7 mmol/L (3.5-5.1); Sodium 134 mmol/L (136-145)
[2022-11-21 06:59] LABS: Vancomycin, Random 30.6 ug/mL (See Comment)
[2022-11-21] MEDS: Brimonidine Tartrate 0.2% Ophth Soln 5 ml Bottle EA EYE SCH ×3 (07:20→20:30)
[2022-11-21] MEDS: Cholecalciferol 1,000 UNITS (25 MCG) TAB PO SCH (08:30)
[2022-11-21] MEDS: Gabapentin 300 MG CAP PO SCH ×2 (08:30→20:28)
[2022-11-21] MEDS: Cinacalcet HCl 30 MG TAB PO SCH (08:30)
[2022-11-21] MEDS: Sevelamer Carbonate 800 MG TAB PO SCH (08:30)
[2022-11-21] MEDS ORDERED: Heparin 10,000 UNITS/ 10 ML VIAL ONE (08:46)
[2022-11-21] MEDS: Timolol 0.5% Ophth Soln 5 ml Bottle EA EYE SCH ×2 (10:04→20:30)
[2022-11-21] MEDS: Carvedilol 25 MG TAB PO SCH ×2 (10:17→20:28)
[2022-11-21] MEDS ORDERED: fentaNYL PF 100 MCG/2 ML SYRINGE ONE (13:29)
[2022-11-21] MEDS ORDERED: PROPOFOL 40 ML ONE (13:39)
[2022-11-21] MEDS ORDERED: Acetaminophen 500 MG TAB PO PRN (14:53)
[2022-11-21] MEDS ORDERED: Acetaminophen 500 MG TAB PO SCH (15:00)
[2022-11-21] MEDS ORDERED: Cefepime 0.5 GM, Admixture Fee 1 EACH in Sodium Chloride 0.9% 100 ML IVPB SCH (17:00)
[2022-11-21] MEDS: Famotidine 20 MG TAB PO SCH (20:28)
[2022-11-22] MEDS: Levothyroxine Sodium 100 MCG TAB PO SCH (05:08)
[2022-11-22 07:33] LABS: #Basophils 0.1 thou/uL (0.0-0.2); #Eosinphils 0.1 thou/uL (0.0-0.7); #Lymphocytes 2.4 thou/uL (1.20-3.40); #Monocytes 0.5 thou/uL (0.11-0.59); #Neutrophils 3.9 thou/uL (1.40-6.50); %Basophils 1.5 % (0.0-1.0); %Eosinophils 1.2 % (0.0-10.0); %Lymphocytes 34.1 % (21.0-51.0); %Monocytes 7.6 % (0.0-10.0); %Neutrophils 55.5 % (42.0-75.0); Hemoglobin 11.9 g/dL (12.0-16.0); Mean Corpuscular HGB CONC 32.3 g/dL (32.0-36.0); Mean Corpuscular Hemoglobin 30.5 pg (27.0-31.0); Mean Corpuscular Volume 94.4 fl (78.0-98.0); Mean Platelet Volume 7.7 fL (7.4-10.4); Platelet Count 268 10x3/uL (130-400); RBC Distribution Width 19.7 % (11.5-14.5); Red Blood Cell (RBC) Count 3.92 mill/uL (4.20-5.40); White Blood Cell (WBC) Count 6.9 10x3/uL (4.8-10.8)
[2022-11-22 07:51] LABS: Anion Gap 16 mmol/L (10-20); BUN (Urea Nitrogen) 23 mg/dL (9.8-20.1); Calc. Creatinine Clearance 12 mL/min (70-130); Calcium 9.5 mg/dL (7.8-10.44); Carbon Dioxide 23 mmol/L (23-31); Chloride 98 mmol/L (98-107); Estimated GFR 8; Glucose 255 mg/dL (80-115); Potassium 4.2 mmol/L (3.5-5.1); Sodium 133 mmol/L (136-145)
[2022-11-22] MEDS: Brimonidine Tartrate 0.2% Ophth Soln 5 ml Bottle EA EYE SCH (10:18)
[2022-11-22] MEDS: Timolol 0.5% Ophth Soln 5 ml Bottle EA EYE SCH (10:19)
[2022-11-22] MEDS: Carvedilol 25 MG TAB PO SCH (10:20)
[2022-11-22] MEDS: Cinacalcet HCl 30 MG TAB PO SCH (10:20)
[2022-11-22] MEDS: Gabapentin 300 MG CAP PO SCH (10:20)
[2022-11-22] MEDS: Cholecalciferol 1,000 UNITS (25 MCG) TAB PO SCH (10:20)
[2022-11-22] MEDS: Sevelamer Carbonate 800 MG TAB PO SCH (10:20)
[2022-11-22] MEDS ORDERED: Loratadine 10 MG TAB PO PRN (10:35)
[2022-11-22] MEDS ORDERED: Loratadine 10 MG TAB PO SCH (10:45)
[2022-11-22 11:56] VITALS: BP 138/66; TEMP 98.7
== END 2022-11-22 13:45 | disposition home health service (06) | DRG 463 ==
LOC: ERS 17:08 → SURG A 18:41
PROVIDERS: ADMIT Specialist; ATTEND Specialist
PROC: 8E0ZXY6 Isolation (ICD-10-PCS; 2022-11-20)
PROC: 0JBP0ZZ Excision of Left Lower Leg Subcutaneous Tissue and Fascia, Open Approach (ICD-10-PCS; principal; 2022-11-21)
DX: T87.81 Dehiscence of amputation stump (principal); N18.6 End stage renal disease; U07.1 COVID-19; I12.0 Hypertensive chronic kidney disease with stage 5 chronic kidney disease or end stage renal disease; I82.401 Acute embolism and thrombosis of unspecified deep veins of right lower extremity; T87.44 Infection of amputation stump, left lower extremity; E11.319 Type 2 diabetes mellitus with unspecified diabetic retinopathy without macular edema; E11.22 Type 2 diabetes mellitus with diabetic chronic kidney disease; E03.9 Hypothyroidism, unspecified; E66.01 Morbid (severe) obesity due to excess calories; H54.7 Unspecified visual loss; Z89.512 Acquired absence of left leg below knee; Z79.899 Other long term (current) drug therapy; Z86.718 Personal history of other venous thrombosis and embolism; Z79.01 Long term (current) use of anticoagulants; Z98.890 Other specified postprocedural states; Z83.3 Family history of diabetes mellitus; Z95.820 Peripheral vascular angioplasty status with implants and grafts; Z99.2 Dependence on renal dialysis; Z79.890 Hormone replacement therapy
CPT/HCPCS: 36415; 36416; 80048; 80053; 80202; 83605; 85025; 86704; 87040; 87070; 87077; 87186; 87205; 96365; 96367; 96375; 97139; J0360; J0692; J1644; J1815; J2704; J3370; J3370-JW; J3490; J7050; U0002

== ENCOUNTER 2023-01-24 11:07 | Day surgery (SDC) | payer MEDICARE, MEDICAID ==
[2023-01-23 09:43] VITALS: BMI 33.0
[2023-01-24] MEDS ORDERED: Midazolam HCl 2 mg/2 ml Vial ONE (11:53)
[2023-01-24] MEDS ORDERED: Lidocaine 1% (PF) 30 ML VIAL ONE (11:54)
[2023-01-24] MEDS ORDERED: Heparin 10,000 UNITS/ 10 ML VIAL ONE (11:54)
[2023-01-24] MEDS ORDERED: fentaNYL 50 mcg/mL 1 mL Vial ONE (11:54)
[2023-01-24 12:30] LABS: #Basophils 0.1 thou/uL (0.0-0.2); #Eosinphils 0.1 thou/uL (0.0-0.7); #Lymphocytes 2.9 thou/uL (1.20-3.40); #Monocytes 0.5 thou/uL (0.11-0.59); #Neutrophils 3.9 thou/uL (1.40-6.50); %Basophils 0.8 % (0.0-1.0); %Eosinophils 1.2 % (0.0-10.0); %Lymphocytes 39.2 % (21.0-51.0); %Monocytes 6.3 % (0.0-10.0); %Neutrophils 52.4 % (42.0-75.0); ALT (SGPT) 16 U/L (8-55); AST (SGOT) 38 U/L (5-34); Albumin 4.1 g/dL (3.4-4.8); Alkaline Phosphatase 86 U/L (40-110); Anion Gap 21 mmol/L (10-20); BUN (Urea Nitrogen) 29 mg/dL (9.8-20.1); Bilirubin, Total 0.4 mg/dL (0.2-1.2); Calc. Creatinine Clearance 14 mL/min (70-130); Carbon Dioxide 24 mmol/L (23-31); Chloride 99 mmol/L (98-107); Estimated GFR 9; Globulin 5.2 g/dL (2.4-3.5); Glucose 79 mg/dL (80-115); Hemoglobin 12.9 g/dL (12.0-16.0); Mean Corpuscular HGB CONC 32.8 g/dL (32.0-36.0); Mean Corpuscular Volume 94.6 fl (78.0-98.0); Mean Platelet Volume 8.4 fL (7.4-10.4); Platelet Count 240 10x3/uL (130-400); Potassium 7.5 mmol/L (3.5-5.1); Protein, Total 9.3 g/dL (5.8-8.1); RBC Distribution Width 18.8 % (11.5-14.5); Red Blood Cell (RBC) Count 4.17 mill/uL (4.20-5.40); Sodium 136 mmol/L (136-145); White Blood Cell (WBC) Count 7.4 10x3/uL (4.8-10.8)
[2023-01-24] MEDS ORDERED: Protamine Sulfate 50 MG/5 ML VIAL ONE (13:25)
== END 2023-01-24 18:20 | disposition home or self-care (01) ==
LOC: CCL 11:07
PROVIDERS: ATTEND Thoracic Surgery (Cardiothoracic Vascular Surgery)
PROC: 047K3ZZ Dilation of Right Femoral Artery, Percutaneous Approach (ICD-10-PCS; principal; 2023-01-24)
DX: E11.51 Type 2 diabetes mellitus with diabetic peripheral angiopathy without gangrene (principal); L97.519 Non-pressure chronic ulcer of other part of right foot with unspecified severity; I70.235 Atherosclerosis of native arteries of right leg with ulceration of other part of foot; I70.92 Chronic total occlusion of artery of the extremities; I12.0 Hypertensive chronic kidney disease with stage 5 chronic kidney disease or end stage renal disease; E11.22 Type 2 diabetes mellitus with diabetic chronic kidney disease; N18.6 End stage renal disease; Z79.01 Long term (current) use of anticoagulants; Z79.4 Long term (current) use of insulin; Z79.890 Hormone replacement therapy; Z79.899 Other long term (current) drug therapy; Z99.2 Dependence on renal dialysis; Z99.3 Dependence on wheelchair; Z89.512 Acquired absence of left leg below knee
CPT/HCPCS: 80053; 85025; 85347; C1725; C1769 ×4; C1887 ×2; C1894; 36247; 37246; 75710; J1644; J2001; J2250; J2720; J3010